=== PATIENT | male | born 1935 | race African-American/Black ===

== ENCOUNTER 2018-04-07 06:37 | Inpatient (IN) | payer MEDICARE ==
[2018-04-07] VITALS (25 sets, daily range): BP systolic 100–162; BP diastolic 33–99
[~2018-04-07] VITALS: Ht 185.4 cm; Wt 102.2 kg
[2018-04-07] MEDS ORDERED: ACET-2708 PO (08:21)
[2018-04-07] MEDS ORDERED: ASPI-1159 PO (08:21)
[2018-04-07] MEDS ORDERED: LOSA50TA20 PO (08:21)
[2018-04-07] MEDS ORDERED: LIP40 PO (08:21)
[2018-04-07] MEDS ORDERED: IODIXANOL 320MG/ML 100 ML BOTTLE IV ONE ×2 (08:34→09:21)
[2018-04-07] MEDS ORDERED: LIDOCAINE HCL 1% 20ML VIAL (Pyxis) INJ ONE ×2 (08:34→09:16)
[2018-04-07] MEDS ORDERED: MIDAZOLAM HCL 2 MG/2 ML VIAL ONE (08:41)
[2018-04-07] MEDS ORDERED: FENTANYL CITRATE/PF 50MCG/ML 2ML VIAL ONE (08:41)
[2018-04-07] MEDS ORDERED: IOHEXOL-300 100 ML BOTTLE ONE (09:27)
[2018-04-07] MEDS ORDERED: ASPIRIN 325MG TABLET ONE (09:55)
[2018-04-07] MEDS ORDERED: CLOPIDOGREL 75MG TABLET ONE ×2 (09:55→09:57)
[2018-04-07] MEDS ORDERED: ACETAMINOPHEN 325MG TABLET PO PRN ×2 (10:00→11:30)
[2018-04-07] MEDS ORDERED: ATROPINE SULFATE 1MG/10ML SYR IV PRN (10:00)
[2018-04-07] MEDS ORDERED: HYDROCODONE/ACETAMINOPHEN 5/325MG TABLET PO PRN (11:30)
[2018-04-07] MEDS ORDERED: SODIUM CHLORIDE 0.9% 1,000 ML IV SCH (11:30)
[2018-04-07] MEDS: LOSARTAN POTASSIUM 50 MG TABLET PO SCH (11:30)
[2018-04-07] MEDS: SODIUM CHLORIDE 0.45% 1,000 ML IV SCH (11:45)
[2018-04-07] MEDS ORDERED: HEPARIN SODIUM 1,000 UNIT/1ML VIAL IV ONE (13:30)
[2018-04-07] MEDS ORDERED: NICARDIPINE 100MCG/ML 10ML VIAL (CATH LAB) IV ONE (13:30)
[2018-04-07] MEDS ORDERED: NITROGLYCERIN 50MCG/ML 10ML VIAL (CATH LAB) IV ONE (13:30)
[2018-04-07] MEDS: ATENOLOL 50 MG TABLET PO SCH ×2 (14:15→20:05)
[2018-04-07] MEDS ORDERED: ATORVASTATIN CALCIUM 20MG TABLET PO SCH (21:00)
[2018-04-07] MEDS ORDERED: METOPROLOL TARTRATE 25MG TABLET PO SCH (21:00)
[2018-04-08] VITALS (10 sets, daily range): BP systolic 96–159; BP diastolic 28–94
[2018-04-08] MEDS: SODIUM CHLORIDE 0.45% 1,000 ML IV SCH (03:43)
[2018-04-08 05:51] LABS: CHLORIDE 103 mEq/L (98-107)
[2018-04-08 06:02] LABS: BASOPHILS % 0.4 % (0.0-2.0); EOSINOPHILS % 4.4 % (0.0-5.0); HEMATOCRIT. 38.1 % (42.0-52.0); HEMOGLOBIN. 12.8 g/dL (14.0-18.0); LDL CHOLESTEROL 96 mg/dL (5-100); LYMPHOCYTES % 11.5 % (20.0-50.0); MEAN CORPUSCULAR HEMOGLOBIN 28.8 pg (28.0-32.0); MEAN CORPUSCULAR VOLUME 85.5 fL (80.0-94.0); MEAN PLATELET VOLUME 7.9 fl (7.4-10.4); MONOCYTES % 8.5 % (2.0-8.0); NEUTROPHILS % 75.2 % (40.0-76.0); PLATELET 193 x1000/uL (130-400); RED BLOOD CELL COUNT 4.45 mill/uL (4.7-6.1); RED CELL DISTRIBUTION WIDTH 13.2 % (11.6-14.6)
[2018-04-08 06:05] LABS: HDL CHOLESTEROL 38 mg/dL (40-59)
[2018-04-08] MEDS: LOSARTAN POTASSIUM 50 MG TABLET PO SCH (08:23)
[2018-04-08] MEDS: ATENOLOL 50 MG TABLET PO SCH (08:23)
[2018-04-08] MEDS ORDERED: CLOPIDOGREL 75MG TABLET PO SCH (09:00)
[2018-04-08] MEDS ORDERED: ASPIRIN 81MG EC TABLET PO SCH (09:00)
[2018-05-19] MEDS ORDERED: CHOL200077 PO (08:12)
[2018-05-19] MEDS ORDERED: CLOP75TA16 PO (08:12)
== END 2018-04-08 11:32 | disposition home or self-care (01) | DRG 246 ==
LOC: CCL 06:37 → 3WST 06:38
PROVIDERS: ADMIT Specialist; ATTEND Specialist
PROC: 4A023N7 Measurement of Cardiac Sampling and Pressure, Left Heart, Percutaneous Approach (ICD-10-PCS; principal; 2018-04-07)
PROC: 027034Z Dilation of Coronary Artery, One Artery with Drug-eluting Intraluminal Device, Percutaneous Approach (ICD-10-PCS; 2018-04-07)
PROC: B2111ZZ Fluoroscopy of Multiple Coronary Arteries using Low Osmolar Contrast (ICD-10-PCS; 2018-04-07)
DX: I25.10 Atherosclerotic heart disease of native coronary artery without angina pectoris (principal); I50.43 Acute on chronic combined systolic (congestive) and diastolic (congestive) heart failure; E78.5 Hyperlipidemia, unspecified; I35.0 Nonrheumatic aortic (valve) stenosis; G47.30 Sleep apnea, unspecified; Z79.899 Other long term (current) drug therapy; Z85.46 Personal history of malignant neoplasm of prostate; Z95.5 Presence of coronary angioplasty implant and graft; I11.0 Hypertensive heart disease with heart failure
CPT/HCPCS: 36415; 80048; 80061; 83036; 85025; 85347; 92928; 93458; C1725; C1760; C1769; C1874; C1887; C1893; J1644; J2250; J3010; J3490; J7040; Q9967

== ENCOUNTER 2018-06-21 13:28 | Emergency (ER) | payer MEDICARE ==
[~2018-06-21] VITALS: Ht 185.4 cm; Wt 100.0 kg
[~2018-06-21 13:28] MED LIST: ACET-2708 PO; ASPI-1159 PO; CHOL200077 PO; CLOP75TA16 PO; LIP40 PO; LOSA50TA20 PO
[2018-06-21] MEDS ORDERED: TRAMADOL 50MG TABLET PO ONE (14:45)
[2018-06-21] MEDS ORDERED: IBUPROFEN 400MG TABLET PO ONE (14:45)
[2018-06-21 16:30] VITALS: BP 113/85
== END 2018-06-21 17:03 | disposition home or self-care (01) ==
LOC: ER 13:28
DX: M25.561 Pain in right knee (principal); I11.9 Hypertensive heart disease without heart failure; E78.00 Pure hypercholesterolemia, unspecified; I25.10 Atherosclerotic heart disease of native coronary artery without angina pectoris; E78.5 Hyperlipidemia, unspecified; Z96.643 Presence of artificial hip joint, bilateral; Z79.01 Long term (current) use of anticoagulants; Z79.82 Long term (current) use of aspirin; W01.0XXA Fall on same level from slipping, tripping and stumbling without subsequent striking against object, initial encounter; Y93.89 Activity, other specified; Y92.89 Other specified places as the place of occurrence of the external cause; Y99.8 Other external cause status
CPT/HCPCS: 73562; 93971; 99284

== ENCOUNTER 2019-04-11 11:18 | Inpatient (IN) | payer MEDICARE, OTHER ==
[~2019-04-11] VITALS: Ht 188 cm; Wt 101.2 kg
[~2019-04-11 11:18] MED LIST changes: -ASPI-1159 PO; +ASPI-1393 PO; -CLOP75TA16 PO; +CLOP75TA4 PO; -LOSA50TA20 PO; +LOSA50TA41 PO
[2019-04-11] MEDS ORDERED: SODIUM CHLORIDE 0.9% 1,000 ML IV ONE (11:58)
[2019-04-11] MEDS ORDERED: PANTOPRAZOLE SODIUM 40 MG/VIAL IV ONE (12:00)
[2019-04-11 12:23] LABS: HEMATOCRIT. 22.9 % (42.0-52.0); HEMOGLOBIN. 7.8 g/dL (14.0-18.0); MEAN CORPUSCULAR HEMOGLOBIN 29.2 pg (28.0-32.0); MEAN CORPUSCULAR VOLUME 85.4 fL (80.0-94.0); MEAN PLATELET VOLUME 7.6 fl (7.4-10.4); PLATELET 228 x1000/uL (130-400); RED BLOOD CELL COUNT 2.69 mill/uL (4.7-6.1); RED CELL DISTRIBUTION WIDTH 14.9 % (11.6-14.6)
[2019-04-11 12:26] LABS: CHLORIDE 107 mEq/L (98-107)
[2019-04-11 12:29] LABS: PARTIAL THROMBOPLASTIN TIME 21.3 sec (23.4-31.0); PROTHROMBIN TIME 10.3 sec (9.6-11.0)
[2019-04-11 13:29] LABS: PLATELET ESTIMATE NORMAL
[2019-04-11] MEDS ORDERED: ONDANSETRON HCL 4MG/2ML INJ IV PRN (16:30)
[2019-04-11] MEDS ORDERED: MORPHINE SULFATE 2 MG/ML CPJ (NOT FOR IM USE) IV PRN (16:30)
[2019-04-11 17:00] VITALS: BP 103/53
[2019-04-11 18:00] VITALS: BP 103/53
[2019-04-11 20:00] VITALS: BP 102/50
[2019-04-11] MEDS: DEXT 5%/0.45% NACL 1000ML 1,000 ML IV SCH (20:19)
[2019-04-11] MEDS: PANTOPRAZOLE SODIUM 40 MG/VIAL IV SCH (20:58)
[2019-04-12] VITALS (14 sets, daily range): BP systolic 79–121; BP diastolic 43–66
[2019-04-12 03:58] LABS: BASOPHILS % 0.3 % (0.0-2.0); EOSINOPHILS % 0.6 % (0.0-5.0); LYMPHOCYTES % 11.4 % (20.0-50.0); MEAN CORPUSCULAR HEMOGLOBIN 29.6 pg (28.0-32.0); MONOCYTES % 6.8 % (2.0-8.0); NEUTROPHILS % 80.9 % (40.0-76.0); PLATELET 186 x1000/uL (130-400); RED BLOOD CELL COUNT 2.29 mill/uL (4.7-6.1); RED CELL DISTRIBUTION WIDTH 14.7 % (11.6-14.6)
[2019-04-12 04:06] LABS: CHLORIDE 110 mEq/L (98-107)
[2019-04-12 04:12] LABS: HEMATOCRIT. 19.7 % (42.0-52.0); HEMOGLOBIN. 6.8 g/dL (14.0-18.0); TOTAL IRON BINDING CAPACITY 247 ug/dL (250-450)
[2019-04-12] MEDS ORDERED: PANTOPRAZOLE SODIUM 40 MG/VIAL IV SCH (09:00)
[2019-04-12] MEDS: PANTOPRAZOLE SODIUM 40 MG/VIAL IV SCH ×2 (09:57→20:01)
[2019-04-12] MEDS ORDERED: SORBITOL 70% SOLN 30ML PO NR ×2 (16:00→20:00)
[2019-04-12] MEDS ORDERED: ACETAMINOPHEN 325MG TABLET PO SCH (17:45)
[2019-04-12] MEDS: DEXT 5%/0.45% NACL 1000ML 1,000 ML IV SCH (18:57)
[2019-04-13] VITALS (16 sets, daily range): BP systolic 95–134; BP diastolic 47–84
[2019-04-13] MEDS: PANTOPRAZOLE SODIUM 40 MG/VIAL IV SCH ×2 (10:46→21:00)
[2019-04-13 10:53] LABS: BASOPHILS % 0.3 % (0.0-2.0); EOSINOPHILS % 1.8 % (0.0-5.0); HEMOGLOBIN. 7.3 g/dL (14.0-18.0); LYMPHOCYTES % 9.1 % (20.0-50.0); MEAN CORPUSCULAR HEMOGLOBIN 30.3 pg (28.0-32.0); MEAN CORPUSCULAR VOLUME 85.4 fL (80.0-94.0); MONOCYTES % 6.8 % (2.0-8.0); PLATELET 162 x1000/uL (130-400); RED BLOOD CELL COUNT 2.41 mill/uL (4.7-6.1); RED CELL DISTRIBUTION WIDTH 14.4 % (11.6-14.6)
[2019-04-13 11:02] LABS: CHLORIDE 109 mEq/L (98-107); PROTHROMBIN TIME 10.1 sec (9.6-11.0)
[2019-04-13 11:04] LABS: HEMATOCRIT. 20.6 % (42.0-52.0)
[2019-04-13] MEDS ORDERED: KCL 20MEQ/100ML PREMIX 100 ML IV NR (14:00)
[2019-04-13 19:52] LABS: HEMATOCRIT 23.9 % (42.0-52.0); HEMOGLOBIN 8.1 g/dL (14.0-18.0); MEAN CORPUSCULAR HEMOGLOBIN 29.2 pg (28.0-32.0); MEAN CORPUSCULAR VOLUME 86.3 fL (80.0-94.0); PLATELET 168 x1000/uL (130-400); RED BLOOD CELL COUNT 2.77 mill/uL (4.7-6.1); RED CELL DISTRIBUTION WIDTH 14.4 % (11.6-14.6)
[2019-04-14] VITALS (7 sets, daily range): BP systolic 95–135; BP diastolic 47–78
[2019-04-14] MEDS: DEXT 5%/0.45% NACL 1000ML 1,000 ML IV SCH ×2 (02:26→18:21)
[2019-04-14] MEDS: ACETAMINOPHEN 325MG TABLET PO PRN ×2 (06:13→20:24)
[2019-04-14] MEDS: PANTOPRAZOLE SODIUM 40 MG/VIAL IV SCH ×2 (11:03→20:08)
[2019-04-14 13:04] LABS: BASOPHILS % 0.3 % (0.0-2.0); EOSINOPHILS % 3.2 % (0.0-5.0); HEMATOCRIT. 23.7 % (42.0-52.0); HEMOGLOBIN. 8.5 g/dL (14.0-18.0); LYMPHOCYTES % 9.5 % (20.0-50.0); MEAN CORPUSCULAR HEMOGLOBIN 30.8 pg (28.0-32.0); MEAN CORPUSCULAR VOLUME 85.7 fL (80.0-94.0); MEAN PLATELET VOLUME 7.6 fl (7.4-10.4); PLATELET 183 x1000/uL (130-400); RED BLOOD CELL COUNT 2.77 mill/uL (4.7-6.1); RED CELL DISTRIBUTION WIDTH 14.7 % (11.6-14.6)
[2019-04-14 13:21] LABS: CHLORIDE 109 mEq/L (98-107)
[2019-04-15] VITALS: BP 118/56
[2019-04-15 04:00] VITALS: BP 134/64
[2019-04-15 06:52] LABS: BASOPHILS % 0.3 % (0.0-2.0); EOSINOPHILS % 4.2 % (0.0-5.0); HEMATOCRIT. 22.6 % (42.0-52.0); HEMOGLOBIN. 7.9 g/dL (14.0-18.0); LYMPHOCYTES % 11.3 % (20.0-50.0); MEAN CORPUSCULAR HEMOGLOBIN 29.9 pg (28.0-32.0); MEAN CORPUSCULAR VOLUME 86.1 fL (80.0-94.0); MEAN PLATELET VOLUME 7.2 fl (7.4-10.4); MONOCYTES % 6.8 % (2.0-8.0); NEUTROPHILS % 77.4 % (40.0-76.0); PLATELET 190 x1000/uL (130-400); RED BLOOD CELL COUNT 2.63 mill/uL (4.7-6.1); RED CELL DISTRIBUTION WIDTH 14.6 % (11.6-14.6)
[2019-04-15 07:01] LABS: CHLORIDE 111 mEq/L (98-107)
[2019-04-15 08:00] VITALS: BP 118/67
[2019-04-15 12:00] VITALS: BP 143/69
[2019-04-15] MEDS: PANTOPRAZOLE SODIUM 40 MG/VIAL IV SCH ×2 (12:01→20:59)
[2019-04-15] MEDS: ASPIRIN 81MG TABLET PO SCH (12:59)
[2019-04-15 14:35] LABS: VITAMIN B12 SERUM 756 pg/mL (211-911)
[2019-04-15 16:00] VITALS: BP 147/81
[2019-04-15] MEDS: DEXT 5%/0.45% NACL 1000ML 1,000 ML IV SCH (16:21)
[2019-04-15 20:00] VITALS: BP 124/84
[2019-04-15] MEDS: ACETAMINOPHEN 325MG TABLET PO PRN (21:19)
[2019-04-16] VITALS: BP 123/69
[2019-04-16 04:00] VITALS: BP 118/54
[2019-04-16 07:07] LABS: CHLORIDE 109 mEq/L (98-107)
[2019-04-16 07:18] LABS: BASOPHILS % 0.4 % (0.0-2.0); EOSINOPHILS % 3.8 % (0.0-5.0); HEMATOCRIT. 23.8 % (42.0-52.0); HEMOGLOBIN. 8.1 g/dL (14.0-18.0); LYMPHOCYTES % 9.6 % (20.0-50.0); MEAN CORPUSCULAR HEMOGLOBIN 29.7 pg (28.0-32.0); MEAN CORPUSCULAR VOLUME 86.8 fL (80.0-94.0); MEAN PLATELET VOLUME 6.9 fl (7.4-10.4); MONOCYTES % 6.6 % (2.0-8.0); NEUTROPHILS % 79.6 % (40.0-76.0); PLATELET 219 x1000/uL (130-400); RED BLOOD CELL COUNT 2.74 mill/uL (4.7-6.1); RED CELL DISTRIBUTION WIDTH 14.8 % (11.6-14.6)
[2019-04-16 08:00] VITALS: BP 136/68
[2019-04-16] MEDS: ASPIRIN 81MG TABLET PO SCH (08:15)
[2019-04-16] MEDS: PANTOPRAZOLE SODIUM 40 MG/VIAL IV SCH (08:15)
[2019-04-16 12:00] VITALS: BP 134/74
[2019-04-16 13:26] VITALS: BP 135/74
== END 2019-04-16 15:55 | disposition home health service (06) | DRG 378 ==
LOC: ER 11:18 → 5WST 14:11 → EDBEDREQTM 14:14 → EDBEDREQ 14:14 → ENRESERV 14:53
PROVIDERS: ADMIT Family Medicine Adult Medicine; ATTEND Family Medicine Adult Medicine
PROC: 30233N1 Transfusion of Nonautologous Red Blood Cells into Peripheral Vein, Percutaneous Approach (ICD-10-PCS; principal; 2019-04-12)
DX: K57.31 Diverticulosis of large intestine without perforation or abscess with bleeding (principal); D62 Acute posthemorrhagic anemia; E78.5 Hyperlipidemia, unspecified; I11.9 Hypertensive heart disease without heart failure; I25.10 Atherosclerotic heart disease of native coronary artery without angina pectoris; J44.9 Chronic obstructive pulmonary disease, unspecified; E78.00 Pure hypercholesterolemia, unspecified; Z96.643 Presence of artificial hip joint, bilateral; K59.00 Constipation, unspecified; M19.90 Unspecified osteoarthritis, unspecified site; K57.90 Diverticulosis of intestine, part unspecified, without perforation or abscess without bleeding; I73.9 Peripheral vascular disease, unspecified; K29.71 Gastritis, unspecified, with bleeding; E87.6 Hypokalemia; I35.0 Nonrheumatic aortic (valve) stenosis; E87.8 Other disorders of electrolyte and fluid balance, not elsewhere classified; I25.2 Old myocardial infarction; Z85.038 Personal history of other malignant neoplasm of large intestine; Z85.46 Personal history of malignant neoplasm of prostate; Z95.5 Presence of coronary angioplasty implant and graft; Z79.02 Long term (current) use of antithrombotics/antiplatelets; Z79.82 Long term (current) use of aspirin
CPT/HCPCS: 36415; 71045; 78278; 80048; 82270; 82607; 82962; 83540; 83550; 83735; 84100; 84484; 85018; 85027; 85044; 86850; 86870; 86900; 86920; 93005; 93306; 93308; 93970; 96361; 96374; 99285; A9560; C9113; J3480; J7030; P9016; P9021

== ENCOUNTER 2019-05-04 22:00 | Inpatient (IN) | payer MEDICARE, OTHER ==
[~2019-05-04] VITALS: Ht 188 cm; Wt 105.7 kg
[~2019-05-04 22:00] MED LIST changes: -CLOP75TA4 PO
[2019-05-04 22:15] VITALS: BP 123/71
[2019-05-04 23:00] VITALS: BP 123/71
[2019-05-04] MEDS ORDERED: ONDANSETRON HCL 4MG/2ML INJ IV PRN (23:45)
[2019-05-04] MEDS ORDERED: SENNOSIDES 8.6MG TABLET PO PRN (23:45)
[2019-05-05 00:39] LABS: CLARITY URINE CLEAR (CLEAR); COLOR URINE YELLOW (YELLOW); KETONES URINE NEGATIVE (NEGATIVE); LEUKOCYTE ESTERASE URINE NEGATIVE (NEGATIVE); NITRITE URINE NEGATIVE (NEGATIVE); OCCULT BLOOD URINE NEGATIVE (NEGATIVE); PH URINE 5.5 (4.5-8.0); PROTEIN URINE 1+ (NEGATIVE)
[2019-05-05] MEDS ORDERED: LEVOFLOXACIN 500MG PREMIX 100 ML IV SCH ×3 (01:00→02:00)
[2019-05-05 09:00] VITALS: BP 134/83
[2019-05-05] MEDS: DOCUSATE SODIUM 100MG CAPSULE PO SCH ×2 (09:00→16:20)
[2019-05-05] MEDS ORDERED: LEVETIRACETAM 500 MG in SODIUM CHLORIDE 0.9% 100 ML IV SCH (09:00)
[2019-05-05] MEDS: PANTOPRAZOLE 40MG DR TABLET PO SCH ×2 (09:00→16:20)
[2019-05-05] MEDS: METOPROLOL TARTRATE 25MG TABLET PO SCH ×2 (09:06→20:47)
[2019-05-05] MEDS: ACETAMINOPHEN 325MG TABLET PO PRN (09:06)
[2019-05-05 13:26] LABS: HEMATOCRIT. 28.7 % (42.0-52.0); HEMOGLOBIN. 9.2 g/dL (14.0-18.0); MEAN CORPUSCULAR HEMOGLOBIN 28.6 pg (28.0-32.0); MEAN CORPUSCULAR VOLUME 88.7 fL (80.0-94.0); MEAN PLATELET VOLUME 7.5 fl (7.4-10.4); PLATELET 360 x1000/uL (130-400); RED BLOOD CELL COUNT 3.24 mill/uL (4.7-6.1); RED CELL DISTRIBUTION WIDTH 17.3 % (11.6-14.6)
[2019-05-05 13:30] LABS: CHLORIDE 100 mEq/L (98-107)
[2019-05-05] MEDS: LACTULOSE 20G/30ML UDC PO SCH ×2 (13:52→21:00)
[2019-05-05 13:58] LABS: PLATELET ESTIMATE NORMAL
[2019-05-05 14:54] LABS: PHOSPHORUS 2.2 mg/dL (2.5-4.9)
[2019-05-05 15:58] LABS: FOLIC ACID (FOLATE) SERUM 5.1 ng/mL (>5.38)
[2019-05-05] MEDS: BISACODYL 5MG TABLET PO PRN (16:21)
[2019-05-05 19:02] LABS: BG BASE EXCESS 9.8 mmol/L (-2.0-2.0); BG CARBOXYHEMOGLOBIN 1.3 % (0.5-1.5); BG DEOXYHEMOGLOBIN 8.1 % (0.0-5.0); BG FRACTION INSPIRED OXYGEN 24; BG HCO3 ACT 36.2 mmol/L (22.0-26.0); BG METHEMOGLOBIN 0.2 % (0.0-1.5); BG OXYGEN SATURATION 91.8 % (92.0-98.5); BG OXYHEMOGLOBIN 90.4 % (94.0-97.0); BG PCO2 59.8 mmHg (35.0-45.0); BG PO2 64.1 mmHg (75.0-100.0); BG SAMPLE SITE RIGHT RADIAL; BG TOTAL HEMOGLOBIN 10.2 g/dL (12.0-18.0); BG VENT MODE NASAL CANNULA
[2019-05-05 20:00] VITALS: BP 105/60
[2019-05-05] MEDS: ATORVASTATIN CALCIUM 20MG TABLET PO SCH (20:47)
[2019-05-05] MEDS: LEVOFLOXACIN 500MG TABLET PO SCH (20:47)
[2019-05-05] MEDS: SENNOSIDES 8.6MG TABLET PO SCH (20:47)
[2019-05-05] MEDS: POLYETHYLENE GLYCOL 3350 (17GM) 1 DOSE PACK PO SCH (20:48)
[2019-05-05] MEDS: LINEZOLID 600MG TABLET PO SCH (20:54)
[2019-05-06] MEDS: LACTULOSE 20G/30ML UDC PO SCH (06:24)
[2019-05-06] MEDS: BISACODYL 5MG TABLET PO PRN (06:24)
[2019-05-06 08:00] VITALS: BP 120/69
[2019-05-06 08:03] LABS: CHLORIDE 101 mEq/L (98-107)
[2019-05-06] MEDS ORDERED: NA PHOS,M-B/NA PHOS,DI-BA ENEMA 118ML PR NR (08:30)
[2019-05-06] MEDS ORDERED: BISACODYL 10MG SUPP PR PRN (09:00)
[2019-05-06] MEDS ORDERED: LACTULOSE 20G/30ML UDC PO SCH (09:00)
[2019-05-06] MEDS ORDERED: DOCUSATE SODIUM 100MG CAPSULE PO SCH (09:00)
[2019-05-06] MEDS: METOPROLOL TARTRATE 25MG TABLET PO SCH ×2 (09:09→20:40)
[2019-05-06] MEDS: FOLIC ACID 1MG TABLET PO SCH (09:09)
[2019-05-06] MEDS: PANTOPRAZOLE 40MG DR TABLET PO SCH ×2 (09:10→16:39)
[2019-05-06] MEDS: DOCUSATE SODIUM 100MG CAPSULE PO SCH ×2 (09:10→16:39)
[2019-05-06] MEDS: LINEZOLID 600MG TABLET PO SCH ×2 (09:11→20:40)
[2019-05-06 11:43] LABS: HEMATOCRIT. 26.9 % (42.0-52.0); HEMOGLOBIN. 8.8 g/dL (14.0-18.0); MEAN CORPUSCULAR HEMOGLOBIN 28.9 pg (28.0-32.0); MEAN CORPUSCULAR VOLUME 88.9 fL (80.0-94.0); MEAN PLATELET VOLUME 7.6 fl (7.4-10.4); PLATELET 337 x1000/uL (130-400); RED BLOOD CELL COUNT 3.03 mill/uL (4.7-6.1); RED CELL DISTRIBUTION WIDTH 17.6 % (11.6-14.6)
[2019-05-06 14:35] LABS: PLATELET ESTIMATE NORMAL
[2019-05-06 20:00] VITALS: BP 118/67
[2019-05-06] MEDS: SENNOSIDES 8.6MG TABLET PO SCH (20:39)
[2019-05-06] MEDS: POLYETHYLENE GLYCOL 3350 (17GM) 1 DOSE PACK PO SCH (20:39)
[2019-05-06] MEDS: LEVOFLOXACIN 500MG TABLET PO SCH (20:39)
[2019-05-06] MEDS: ATORVASTATIN CALCIUM 20MG TABLET PO SCH (20:40)
[2019-05-06] MEDS: IRON SUCROSE COMPLEX 100 MG in SODIUM CHLORIDE 0.9% 100 ML IV SCH (21:15)
[2019-05-07 05:05] VITALS: BP 118/61
[2019-05-07 07:38] LABS: CHLORIDE 99 mEq/L (98-107)
[2019-05-07 07:59] VITALS: BP 120/90
[2019-05-07 08:22] LABS: HEMATOCRIT. 27.2 % (42.0-52.0); HEMOGLOBIN. 9.1 g/dL (14.0-18.0); MEAN CORPUSCULAR HEMOGLOBIN 29.4 pg (28.0-32.0); MEAN CORPUSCULAR VOLUME 87.8 fL (80.0-94.0); MEAN PLATELET VOLUME 7.7 fl (7.4-10.4); PLATELET 341 x1000/uL (130-400); RED CELL DISTRIBUTION WIDTH 17.2 % (11.6-14.6)
[2019-05-07] MEDS: FOLIC ACID 1MG TABLET PO SCH (08:39)
[2019-05-07] MEDS: METOPROLOL TARTRATE 25MG TABLET PO SCH ×2 (08:39→20:21)
[2019-05-07] MEDS: PANTOPRAZOLE 40MG DR TABLET PO SCH ×2 (08:39→17:08)
[2019-05-07] MEDS: DOCUSATE SODIUM 100MG CAPSULE PO SCH ×2 (08:39→17:08)
[2019-05-07] MEDS: LINEZOLID 600MG TABLET PO SCH ×2 (08:40→20:24)
[2019-05-07] MEDS ORDERED: NA PHOS,M-B/NA PHOS,DI-BA ENEMA 118ML PR PRN (09:00)
[2019-05-07 13:29] LABS: PLATELET ESTIMATE NORMAL
[2019-05-07 20:00] VITALS: BP 111/61
[2019-05-07] MEDS: IRON SUCROSE COMPLEX 100 MG in SODIUM CHLORIDE 0.9% 100 ML IV SCH (20:20)
[2019-05-07] MEDS: ATORVASTATIN CALCIUM 20MG TABLET PO SCH (20:21)
[2019-05-07] MEDS: POLYETHYLENE GLYCOL 3350 (17GM) 1 DOSE PACK PO SCH (20:22)
[2019-05-07] MEDS: SENNOSIDES 8.6MG TABLET PO SCH (20:22)
[2019-05-07] MEDS: LEVOFLOXACIN 500MG TABLET PO SCH (20:22)
[2019-05-08 07:43] VITALS: BP 119/75
[2019-05-08] MEDS: METOPROLOL TARTRATE 25MG TABLET PO SCH ×2 (08:22→20:30)
[2019-05-08] MEDS: FOLIC ACID 1MG TABLET PO SCH (08:22)
[2019-05-08] MEDS: PANTOPRAZOLE 40MG DR TABLET PO SCH ×2 (08:22→16:10)
[2019-05-08] MEDS: DOCUSATE SODIUM 100MG CAPSULE PO SCH ×2 (08:22→16:12)
[2019-05-08 20:00] VITALS: BP 120/96
[2019-05-08] MEDS: IRON SUCROSE COMPLEX 100 MG in SODIUM CHLORIDE 0.9% 100 ML IV SCH (20:27)
[2019-05-08] MEDS: POLYETHYLENE GLYCOL 3350 (17GM) 1 DOSE PACK PO SCH (20:29)
[2019-05-08] MEDS: SENNOSIDES 8.6MG TABLET PO SCH (20:30)
[2019-05-08] MEDS: ATORVASTATIN CALCIUM 20MG TABLET PO SCH (20:30)
[2019-05-09 06:58] LABS: BASOPHILS % 0.4 % (0.0-2.0); EOSINOPHILS % 2.7 % (0.0-5.0); HEMOGLOBIN. 9.1 g/dL (14.0-18.0); LYMPHOCYTES % 8.2 % (20.0-50.0); MEAN CORPUSCULAR HEMOGLOBIN 28.1 pg (28.0-32.0); MEAN CORPUSCULAR VOLUME 86.8 fL (80.0-94.0); MEAN PLATELET VOLUME 7.1 fl (7.4-10.4); MONOCYTES % 8.7 % (2.0-8.0); PLATELET 364 x1000/uL (130-400); RED BLOOD CELL COUNT 3.22 mill/uL (4.7-6.1); RED CELL DISTRIBUTION WIDTH 17.7 % (11.6-14.6)
[2019-05-09 07:16] LABS: CHLORIDE 101 mEq/L (98-107)
[2019-05-09 08:00] VITALS: BP 112/70
[2019-05-09] MEDS: FOLIC ACID 1MG TABLET PO SCH (09:32)
[2019-05-09] MEDS: PANTOPRAZOLE 40MG DR TABLET PO SCH ×2 (09:32→16:59)
[2019-05-09] MEDS: DOCUSATE SODIUM 100MG CAPSULE PO SCH ×2 (09:32→16:59)
[2019-05-09] MEDS: METOPROLOL TARTRATE 25MG TABLET PO SCH ×2 (09:32→21:00)
[2019-05-09] MEDS: BISACODYL 5MG TABLET PO PRN (16:59)
[2019-05-09 20:00] VITALS: BP 100/57
[2019-05-09] MEDS: POLYETHYLENE GLYCOL 3350 (17GM) 1 DOSE PACK PO SCH (21:00)
[2019-05-09] MEDS: IRON SUCROSE COMPLEX 100 MG in SODIUM CHLORIDE 0.9% 100 ML IV SCH (21:14)
[2019-05-09] MEDS: ATORVASTATIN CALCIUM 20MG TABLET PO SCH (21:16)
[2019-05-09] MEDS: SENNOSIDES 8.6MG TABLET PO SCH (21:16)
[2019-05-10 08:00] VITALS: BP 125/62
[2019-05-10] MEDS: FOLIC ACID 1MG TABLET PO SCH (08:43)
[2019-05-10] MEDS: METOPROLOL TARTRATE 25MG TABLET PO SCH ×2 (08:43→21:00)
[2019-05-10] MEDS: DOCUSATE SODIUM 100MG CAPSULE PO SCH ×2 (08:44→17:04)
[2019-05-10] MEDS: PANTOPRAZOLE 40MG DR TABLET PO SCH ×2 (08:44→17:04)
[2019-05-10 20:04] VITALS: BP 108/70
[2019-05-10] MEDS: POLYETHYLENE GLYCOL 3350 (17GM) 1 DOSE PACK PO SCH (21:00)
[2019-05-10] MEDS: SENNOSIDES 8.6MG TABLET PO SCH (21:41)
[2019-05-10] MEDS: ATORVASTATIN CALCIUM 20MG TABLET PO SCH (21:41)
[2019-05-10] MEDS: IRON SUCROSE COMPLEX 100 MG in SODIUM CHLORIDE 0.9% 100 ML IV SCH (22:05)
[2019-05-11 07:34] VITALS: BP 138/81
[2019-05-11] MEDS: METOPROLOL TARTRATE 25MG TABLET PO SCH ×2 (08:26→20:21)
[2019-05-11] MEDS: PANTOPRAZOLE 40MG DR TABLET PO SCH ×2 (08:26→16:18)
[2019-05-11] MEDS: DOCUSATE SODIUM 100MG CAPSULE PO SCH ×2 (08:26→16:18)
[2019-05-11] MEDS: FOLIC ACID 1MG TABLET PO SCH (08:26)
[2019-05-11 20:00] VITALS: BP 127/64
[2019-05-11] MEDS: ATORVASTATIN CALCIUM 20MG TABLET PO SCH (20:20)
[2019-05-11] MEDS: POLYETHYLENE GLYCOL 3350 (17GM) 1 DOSE PACK PO SCH (20:20)
[2019-05-11] MEDS: SENNOSIDES 8.6MG TABLET PO SCH (20:20)
[2019-05-12 07:06] LABS: BASOPHILS % 0.3 % (0.0-2.0); EOSINOPHILS % 2.6 % (0.0-5.0); HEMATOCRIT. 27.8 % (42.0-52.0); LYMPHOCYTES % 8.2 % (20.0-50.0); MEAN CORPUSCULAR HEMOGLOBIN 28.6 pg (28.0-32.0); MEAN CORPUSCULAR VOLUME 87.7 fL (80.0-94.0); MEAN PLATELET VOLUME 6.9 fl (7.4-10.4); MONOCYTES % 7.3 % (2.0-8.0); NEUTROPHILS % 81.6 % (40.0-76.0); PLATELET 344 x1000/uL (130-400); RED BLOOD CELL COUNT 3.17 mill/uL (4.7-6.1); RED CELL DISTRIBUTION WIDTH 18.4 % (11.6-14.6)
[2019-05-12 07:25] LABS: CHLORIDE 102 mEq/L (98-107)
[2019-05-12 07:44] VITALS: BP 159/85
[2019-05-12] MEDS: METOPROLOL TARTRATE 25MG TABLET PO SCH ×2 (08:07→20:14)
[2019-05-12] MEDS: DOCUSATE SODIUM 100MG CAPSULE PO SCH ×2 (08:08→16:19)
[2019-05-12] MEDS: FOLIC ACID 1MG TABLET PO SCH (08:08)
[2019-05-12] MEDS: PANTOPRAZOLE 40MG DR TABLET PO SCH ×2 (08:08→16:19)
[2019-05-12 16:37] LABS: BG BASE EXCESS 6.5 mmol/L (-2.0-2.0); BG CARBOXYHEMOGLOBIN 0.5 % (0.5-1.5); BG DEOXYHEMOGLOBIN 12.5 % (0.0-5.0); BG FRACTION INSPIRED OXYGEN 21; BG HCO3 ACT 30.7 mmol/L (22.0-26.0); BG METHEMOGLOBIN 0.3 % (0.0-1.5); BG OXYGEN SATURATION 87.4 % (92.0-98.5); BG OXYHEMOGLOBIN 86.7 % (94.0-97.0); BG PCO2 42.7 mmHg (35.0-45.0); BG PH 7.475 (7.350-7.450); BG PO2 51.6 mmHg (75.0-100.0); BG SAMPLE SITE RIGHT RADIAL; BG TOTAL HEMOGLOBIN 10.3 g/dL (12.0-18.0); BG VENT MODE ROOM AIR
[2019-05-12 20:00] VITALS: BP 131/65
[2019-05-12] MEDS: ATORVASTATIN CALCIUM 20MG TABLET PO SCH (20:14)
[2019-05-12] MEDS: SENNOSIDES 8.6MG TABLET PO SCH (20:14)
[2019-05-12] MEDS: POLYETHYLENE GLYCOL 3350 (17GM) 1 DOSE PACK PO SCH (20:14)
[2019-05-13 08:00] VITALS: BP 128/74
[2019-05-13] MEDS: FOLIC ACID 1MG TABLET PO SCH (08:14)
[2019-05-13] MEDS: METOPROLOL TARTRATE 25MG TABLET PO SCH ×2 (08:15→20:31)
[2019-05-13] MEDS: PANTOPRAZOLE 40MG DR TABLET PO SCH ×2 (08:15→16:29)
[2019-05-13] MEDS: DOCUSATE SODIUM 100MG CAPSULE PO SCH ×2 (08:15→16:29)
[2019-05-13 19:14] LABS: 25-HYDROXY VITAMIN D3 17 ng/mL (.)
[2019-05-13 20:00] VITALS: BP 123/64
[2019-05-13] MEDS: ATORVASTATIN CALCIUM 20MG TABLET PO SCH (20:31)
[2019-05-13] MEDS: SENNOSIDES 8.6MG TABLET PO SCH (20:31)
[2019-05-13] MEDS: POLYETHYLENE GLYCOL 3350 (17GM) 1 DOSE PACK PO SCH (20:32)
[2019-05-14 07:00] VITALS: BP 106/49
[2019-05-14 07:04] LABS: BASOPHILS % 0.5 % (0.0-2.0); EOSINOPHILS % 3.3 % (0.0-5.0); HEMATOCRIT. 29.1 % (42.0-52.0); HEMOGLOBIN. 9.5 g/dL (14.0-18.0); LYMPHOCYTES % 9.1 % (20.0-50.0); MEAN CORPUSCULAR HEMOGLOBIN 28.6 pg (28.0-32.0); MEAN CORPUSCULAR VOLUME 87.4 fL (80.0-94.0); MEAN PLATELET VOLUME 6.7 fl (7.4-10.4); MONOCYTES % 6.2 % (2.0-8.0); NEUTROPHILS % 80.9 % (40.0-76.0); PLATELET 354 x1000/uL (130-400); RED BLOOD CELL COUNT 3.33 mill/uL (4.7-6.1); RED CELL DISTRIBUTION WIDTH 18.4 % (11.6-14.6)
[2019-05-14 07:15] LABS: CHLORIDE 104 mEq/L (98-107)
[2019-05-14] MEDS: METOPROLOL TARTRATE 25MG TABLET PO SCH ×2 (08:43→21:00)
[2019-05-14] MEDS: PANTOPRAZOLE 40MG DR TABLET PO SCH ×2 (08:44→16:34)
[2019-05-14] MEDS: FOLIC ACID 1MG TABLET PO SCH (08:44)
[2019-05-14] MEDS: DOCUSATE SODIUM 100MG CAPSULE PO SCH ×2 (08:44→16:34)
[2019-05-14] MEDS ORDERED: ERGOCALCIFEROL 50000UNITS CAPSULE PO SCH (10:30)
[2019-05-14 20:00] VITALS: BP 114/61
[2019-05-14] MEDS: ATORVASTATIN CALCIUM 20MG TABLET PO SCH (20:51)
[2019-05-14] MEDS: SENNOSIDES 8.6MG TABLET PO SCH (20:51)
[2019-05-14] MEDS: POLYETHYLENE GLYCOL 3350 (17GM) 1 DOSE PACK PO SCH (20:52)
[2019-05-15 08:00] VITALS: BP 108/56
[2019-05-15] MEDS: DOCUSATE SODIUM 100MG CAPSULE PO SCH ×2 (08:31→16:08)
[2019-05-15] MEDS: METOPROLOL TARTRATE 25MG TABLET PO SCH ×2 (08:31→20:49)
[2019-05-15] MEDS: PANTOPRAZOLE 40MG DR TABLET PO SCH ×2 (08:31→16:08)
[2019-05-15] MEDS: FOLIC ACID 1MG TABLET PO SCH (08:31)
[2019-05-15 20:00] VITALS: BP 135/78
[2019-05-15] MEDS: POLYETHYLENE GLYCOL 3350 (17GM) 1 DOSE PACK PO SCH (20:49)
[2019-05-15] MEDS: SENNOSIDES 8.6MG TABLET PO SCH (20:49)
[2019-05-15] MEDS: ATORVASTATIN CALCIUM 20MG TABLET PO SCH (20:49)
[2019-05-16 07:04] LABS: CHLORIDE 106 mEq/L (98-107)
[2019-05-16 07:12] LABS: BASOPHILS % 0.8 % (0.0-2.0); EOSINOPHILS % 3.7 % (0.0-5.0); HEMATOCRIT. 29.7 % (42.0-52.0); HEMOGLOBIN. 9.6 g/dL (14.0-18.0); LYMPHOCYTES % 9.1 % (20.0-50.0); MEAN CORPUSCULAR HEMOGLOBIN 28.3 pg (28.0-32.0); MEAN CORPUSCULAR VOLUME 87.8 fL (80.0-94.0); MEAN PLATELET VOLUME 6.8 fl (7.4-10.4); MONOCYTES % 7.4 % (2.0-8.0); PLATELET 381 x1000/uL (130-400); RED BLOOD CELL COUNT 3.38 mill/uL (4.7-6.1); RED CELL DISTRIBUTION WIDTH 18.5 % (11.6-14.6)
[2019-05-16 08:07] VITALS: BP 101/63
[2019-05-16] MEDS: DOCUSATE SODIUM 100MG CAPSULE PO SCH ×2 (08:17→16:37)
[2019-05-16] MEDS: FOLIC ACID 1MG TABLET PO SCH (08:17)
[2019-05-16] MEDS: PANTOPRAZOLE 40MG DR TABLET PO SCH ×2 (08:17→16:37)
[2019-05-16] MEDS: METOPROLOL TARTRATE 25MG TABLET PO SCH ×2 (08:18→21:00)
[2019-05-16 20:00] VITALS: BP 102/64
[2019-05-16] MEDS: ATORVASTATIN CALCIUM 20MG TABLET PO SCH (21:51)
[2019-05-16] MEDS: SENNOSIDES 8.6MG TABLET PO SCH (21:51)
[2019-05-16] MEDS: POLYETHYLENE GLYCOL 3350 (17GM) 1 DOSE PACK PO SCH (21:52)
[2019-05-17 08:00] VITALS: BP 124/65
[2019-05-17] MEDS: PANTOPRAZOLE 40MG DR TABLET PO SCH ×2 (09:38→16:43)
[2019-05-17] MEDS: METOPROLOL TARTRATE 25MG TABLET PO SCH ×2 (09:38→20:42)
[2019-05-17] MEDS: DOCUSATE SODIUM 100MG CAPSULE PO SCH ×2 (09:38→16:43)
[2019-05-17] MEDS: FOLIC ACID 1MG TABLET PO SCH (09:38)
[2019-05-17 10:00] LABS: BASOPHILS % 0.5 % (0.0-2.0); EOSINOPHILS % 3.7 % (0.0-5.0); HEMATOCRIT. 32.6 % (42.0-52.0); HEMOGLOBIN. 10.4 g/dL (14.0-18.0); LYMPHOCYTES % 10.1 % (20.0-50.0); MEAN CORPUSCULAR HEMOGLOBIN 28.3 pg (28.0-32.0); MEAN CORPUSCULAR VOLUME 88.6 fL (80.0-94.0); MONOCYTES % 7.2 % (2.0-8.0); NEUTROPHILS % 78.5 % (40.0-76.0); PLATELET 401 x1000/uL (130-400); RED BLOOD CELL COUNT 3.69 mill/uL (4.7-6.1); RED CELL DISTRIBUTION WIDTH 18.6 % (11.6-14.6)
[2019-05-17 10:01] LABS: CHLORIDE 107 mEq/L (98-107)
[2019-05-17 20:00] VITALS: BP 102/65
[2019-05-17] MEDS: ATORVASTATIN CALCIUM 20MG TABLET PO SCH (20:36)
[2019-05-17] MEDS: POLYETHYLENE GLYCOL 3350 (17GM) 1 DOSE PACK PO SCH (20:36)
[2019-05-17] MEDS: SENNOSIDES 8.6MG TABLET PO SCH (20:36)
[2019-05-18 08:00] VITALS: BP 96/55
[2019-05-18] MEDS: METOPROLOL TARTRATE 25MG TABLET PO SCH ×2 (09:00→21:14)
[2019-05-18] MEDS: BISACODYL 5MG TABLET PO PRN (10:12)
[2019-05-18] MEDS: PANTOPRAZOLE 40MG DR TABLET PO SCH ×2 (10:12→17:15)
[2019-05-18] MEDS: FOLIC ACID 1MG TABLET PO SCH (10:12)
[2019-05-18] MEDS: DOCUSATE SODIUM 100MG CAPSULE PO SCH ×2 (10:12→17:15)
[2019-05-18 20:00] VITALS: BP 116/92
[2019-05-18] MEDS: ATORVASTATIN CALCIUM 20MG TABLET PO SCH (21:14)
[2019-05-18] MEDS: SENNOSIDES 8.6MG TABLET PO SCH (21:14)
[2019-05-18] MEDS: POLYETHYLENE GLYCOL 3350 (17GM) 1 DOSE PACK PO SCH (21:14)
[2019-05-19 07:47] VITALS: BP 124/78
[2019-05-19] MEDS: DOCUSATE SODIUM 100MG CAPSULE PO SCH (08:10)
[2019-05-19] MEDS: PANTOPRAZOLE 40MG DR TABLET PO SCH (08:11)
[2019-05-19] MEDS: FOLIC ACID 1MG TABLET PO SCH (08:11)
[2019-05-19] MEDS: METOPROLOL TARTRATE 25MG TABLET PO SCH (08:11)
[2019-05-19] MEDS: ACETAMINOPHEN 325MG TABLET PO PRN (08:11)
[2019-05-19 10:10] VITALS: BP 124/78
[2019-05-19 12:33] LABS: BASOPHILS % 0.5 % (0.0-2.0); EOSINOPHILS % 3.6 % (0.0-5.0); HEMATOCRIT. 30.4 % (42.0-52.0); LYMPHOCYTES % 11.9 % (20.0-50.0); MEAN CORPUSCULAR HEMOGLOBIN 28.7 pg (28.0-32.0); MEAN PLATELET VOLUME 7.4 fl (7.4-10.4); MONOCYTES % 6.7 % (2.0-8.0); NEUTROPHILS % 77.3 % (40.0-76.0); PLATELET 400 x1000/uL (130-400); RED BLOOD CELL COUNT 3.49 mill/uL (4.7-6.1)
[2019-05-19 12:42] LABS: CHLORIDE 105 mEq/L (98-107)
== END 2019-05-19 14:10 | disposition home health service (06) | DRG 91 ==
PROVIDERS: ADMIT Physical Medicine & Rehabilitation Spinal Cord Injury Medicine; ATTEND Family Medicine Adult Medicine
DX: G92 Toxic encephalopathy (principal); I21.4 Non-ST elevation (NSTEMI) myocardial infarction; A41.9 Sepsis, unspecified organism; K29.71 Gastritis, unspecified, with bleeding; L03.113 Cellulitis of right upper limb; N17.9 Acute kidney failure, unspecified; J98.11 Atelectasis; K57.92 Diverticulitis of intestine, part unspecified, without perforation or abscess without bleeding; M48.02 Spinal stenosis, cervical region; R53.81 Other malaise; E78.00 Pure hypercholesterolemia, unspecified; M47.812 Spondylosis without myelopathy or radiculopathy, cervical region; I80.8 Phlebitis and thrombophlebitis of other sites; N18.9 Chronic kidney disease, unspecified; I12.9 Hypertensive chronic kidney disease with stage 1 through stage 4 chronic kidney disease, or unspecified chronic kidney disease; I25.10 Atherosclerotic heart disease of native coronary artery without angina pectoris; I73.9 Peripheral vascular disease, unspecified; I35.0 Nonrheumatic aortic (valve) stenosis; K59.00 Constipation, unspecified; E55.9 Vitamin D deficiency, unspecified; E78.5 Hyperlipidemia, unspecified; R09.02 Hypoxemia; D50.9 Iron deficiency anemia, unspecified; Z53.20 Procedure and treatment not carried out because of patient's decision for unspecified reasons; K57.90 Diverticulosis of intestine, part unspecified, without perforation or abscess without bleeding; Z85.46 Personal history of malignant neoplasm of prostate; Z95.5 Presence of coronary angioplasty implant and graft; Z86.73 Personal history of transient ischemic attack (TIA), and cerebral infarction without residual deficits
CPT/HCPCS: 36415; 36600; 71045; 71046; 74018; 80048; 80076; 81003; 82248; 82306; 82375; 82607; 82728; 82746; 82805; 83540; 83550; 83735; 84100; 84134; 84443; 92523; 92610; 93970; 97110; 97116; 97162; 97167; 97530; 97535; A6261; J1953; J1956; J7040; J7050

== ENCOUNTER 2021-06-24 15:00 | Inpatient (IN) | payer MEDICARE, OTHER ==
[~2021-06-24] VITALS: Ht 188 cm; Wt 105.2 kg
[~2021-06-24 15:00] MED LIST changes: -ASPI-1393 PO; +ASPI-1497 PO
[2021-06-24] MEDS ORDERED: HYDROCODONE/ACETAMINOPHEN 5/325MG TABLET PO ONE (17:30)
[2021-06-24] MEDS ORDERED: ONDANSETRON HCL 4MG/2ML INJ IV STA (19:20)
[2021-06-24] MEDS ORDERED: MORPHINE SULFATE 4 MG/ML CPJ (NOT FOR IM USE) IV STA (19:20)
[2021-06-24] MEDS ORDERED: SODIUM CHLORIDE 0.9% 1,000 ML IV ONE (19:30)
[2021-06-24 19:54] LABS: BASOPHILS % 0.5 % (0.0-2.0); EOSINOPHILS % 3.9 % (0.0-5.0); HEMATOCRIT. 31.2 % (42.0-52.0); HEMOGLOBIN. 10.4 g/dL (14.0-18.0); LYMPHOCYTES % 8.1 % (20.0-50.0); MEAN CORPUSCULAR HEMOGLOBIN 28.6 pg (28.0-32.0); MEAN CORPUSCULAR VOLUME 86.3 fL (80.0-94.0); MEAN PLATELET VOLUME 7.9 fl (7.4-10.4); MONOCYTES % 10.6 % (2.0-8.0); NEUTROPHILS % 76.9 % (40.0-76.0); PLATELET 335 x1000/uL (130-400); RED BLOOD CELL COUNT 3.62 mill/uL (4.7-6.1); RED CELL DISTRIBUTION WIDTH 13.5 % (11.6-14.6)
[2021-06-24 19:56] LABS: CHLORIDE 101 mEq/L (98-107)
[2021-06-24 20:01] LABS: PARTIAL THROMBOPLASTIN TIME 25.1 sec (23.4-31.0); PROTHROMBIN TIME 10.3 sec (9.6-11.0)
[2021-06-24] MEDS ORDERED: MORPHINE SULFATE 2 MG/ML CPJ (NOT FOR IM USE) IV NR (20:15)
[2021-06-24 21:14] VITALS: BP 109/61
[2021-06-24 22:00] VITALS: BP 139/80
[2021-06-24] MEDS ORDERED: NALOXONE HCL 0.4MG/ML VIAL IV PRN (22:15)
[2021-06-24] MEDS ORDERED: CLONIDINE 0.1MG TABLET PO PRN (22:45)
[2021-06-25] VITALS (20 sets, daily range): BP systolic 83–145; BP diastolic 41–77
[2021-06-25 00:42] LABS: CREATINE KINASE 1073 IU/L (39-308)
[2021-06-25] MEDS: SODIUM CHLORIDE 0.9% 1,000 ML IV SCH ×3 (05:39→23:18)
[2021-06-25 07:19] LABS: BASOPHILS % 0.4 % (0.0-2.0); EOSINOPHILS % 5.3 % (0.0-5.0); HEMATOCRIT. 28.4 % (42.0-52.0); HEMOGLOBIN. 9.4 g/dL (14.0-18.0); LYMPHOCYTES % 9.9 % (20.0-50.0); MEAN CORPUSCULAR HEMOGLOBIN 28.9 pg (28.0-32.0); MEAN CORPUSCULAR VOLUME 87.2 fL (80.0-94.0); MEAN PLATELET VOLUME 8.3 fl (7.4-10.4); NEUTROPHILS % 70.4 % (40.0-76.0); PLATELET 296 x1000/uL (130-400); RED BLOOD CELL COUNT 3.25 mill/uL (4.7-6.1); RED CELL DISTRIBUTION WIDTH 13.5 % (11.6-14.6)
[2021-06-25] MEDS ORDERED: PNEUMOCOCCAL 23-VAL P-SAC VAC 0.5 ML IM ONE (08:00)
[2021-06-25] MEDS ORDERED: LOSARTAN POTASSIUM 25 MG TABLET PO SCH (09:00)
[2021-06-25] MEDS ORDERED: VANCOMYCIN HCL 1 GM/VIAL ONE (15:30)
[2021-06-25] MEDS ORDERED: BUPIVACAINE HCL/PF 0.25% (2.5MG/ML) 10ML ONE (15:31)
[2021-06-25] MEDS ORDERED: EPINEPHRINE 1:1000 1 MG/ML AMP ONE (15:31)
[2021-06-25] MEDS ORDERED: GLYCOPYRROLATE 0.2 MG/ML 2ML VIAL ONE (17:09)
[2021-06-25] MEDS ORDERED: MIDAZOLAM HCL 2 MG/2 ML VIAL ONE ×2 (17:09→18:17)
[2021-06-25] MEDS ORDERED: PROPOFOL 200MG/20ML VIAL IV ONE (17:09)
[2021-06-25] MEDS ORDERED: NEOSTIGMINE METHYLSULFATE 1MG/ML 10 ML VIAL ONE (17:09)
[2021-06-25] MEDS ORDERED: PHENYLEPHRINE HCL 10 MG/ML 1ML (IV VIAL) IV ONE (17:09)
[2021-06-25] MEDS ORDERED: FENTANYL CITRATE/PF 50MCG/ML 2ML VIAL ONE ×2 (17:09→19:49)
[2021-06-25] MEDS ORDERED: ROCURONIUM BROMIDE 10MG/ML VIAL 5ML IV ONE ×3 (17:09→18:48)
[2021-06-25] MEDS ORDERED: METOCLOPRAMIDE HCL 10MG/2ML VIAL ONE (17:10)
[2021-06-25] MEDS ORDERED: SODIUM CHLORIDE 0.9% 10ML VIAL ONE (17:10)
[2021-06-25] MEDS ORDERED: ONDANSETRON HCL 4MG/2ML INJ ONE (17:10)
[2021-06-25] MEDS ORDERED: SUCCINYLCHOLINE CHLORIDE 200MG/10ML IV ONE (17:10)
[2021-06-25] MEDS ORDERED: CEFAZOLIN SODIUM 1000MG/VIAL ONE (17:10)
[2021-06-25] MEDS ORDERED: ETOMIDATE 2MG/ML 10ML VIAL IV ONE (18:55)
[2021-06-25 19:14] LABS: BASOPHILS % 0.7 % (0.0-2.0); HEMATOCRIT. 27.1 % (42.0-52.0); HEMOGLOBIN. 9.4 g/dL (14.0-18.0); LYMPHOCYTES % 12.7 % (20.0-50.0); MEAN CORPUSCULAR VOLUME 83.8 fL (80.0-94.0); MEAN PLATELET VOLUME 7.6 fl (7.4-10.4); MONOCYTES % 10.4 % (2.0-8.0); NEUTROPHILS % 71.2 % (40.0-76.0); PLATELET 227 x1000/uL (130-400); RED BLOOD CELL COUNT 3.23 mill/uL (4.7-6.1); RED CELL DISTRIBUTION WIDTH 13.9 % (11.6-14.6)
[2021-06-25] MEDS ORDERED: ALBUMIN HUMAN 12.5G/250ML (5%) IV ONE (19:33)
[2021-06-25] MEDS: ATORVASTATIN CALCIUM 40MG TABLET PO SCH (21:00)
[2021-06-25 21:51] LABS: BG CARBOXYHEMOGLOBIN 0.6 % (0.5-1.5); BG DEOXYHEMOGLOBIN 1.6 % (0.0-5.0); BG FRACTION INSPIRED OXYGEN 50; BG HCO3 ACT 18.7 mmol/L (22.0-26.0); BG METHEMOGLOBIN 0.2 % (0.0-1.5); BG OXYGEN SATURATION 98.4 % (92.0-98.5); BG OXYHEMOGLOBIN 97.6 % (94.0-97.0); BG PCO2 33.9 mmHg (35.0-45.0); BG PO2 163.3 mmHg (75.0-100.0); BG SAMPLE SITE ALINE; BG TOTAL HEMOGLOBIN 9.2 g/dL (12.0-18.0); BG VENT MODE VENT - AC
[2021-06-25] MEDS ORDERED: CEFAZOLIN SODIUM 1000MG/VIAL IV SCH (22:00)
[2021-06-25] MEDS ORDERED: MIDAZOLAM HCL 100 MG in SODIUM CHLORIDE 0.9% 80 ML IV PRN (22:30)
[2021-06-25] MEDS ORDERED: NOREPINEPHRINE 32 MG in DEXT 5% WATER 218 ML IV PRN (22:30)
[2021-06-25] MEDS: CEFAZOLIN 1000MG PREMIX 50 ML IV SCH (22:52)
[2021-06-25] MEDS ORDERED: FENTANYL CITRATE/PF 2,500 MCG in SODIUM CHLORIDE 0.9% 200 ML IV PRN (23:00)
[2021-06-25 23:15] LABS: HEMATOCRIT. 26.6 % (42.0-52.0); HEMOGLOBIN. 8.8 g/dL (14.0-18.0); MEAN CORPUSCULAR HEMOGLOBIN 28.4 pg (28.0-32.0); MEAN CORPUSCULAR VOLUME 85.9 fL (80.0-94.0); MEAN PLATELET VOLUME 8.1 fl (7.4-10.4); PLATELET 255 x1000/uL (130-400); RED BLOOD CELL COUNT 3.09 mill/uL (4.7-6.1); RED CELL DISTRIBUTION WIDTH 13.8 % (11.6-14.6)
[2021-06-26] VITALS (77 sets, daily range): BP systolic 69–147; BP diastolic 30–99
[2021-06-26 00:20] LABS: PLATELET ESTIMATE NORMAL
[2021-06-26] MEDS: SODIUM CHLORIDE 0.9% 1,000 ML IV SCH ×2 (01:11→12:00)
[2021-06-26] MEDS: CEFAZOLIN 1000MG PREMIX 50 ML IV SCH ×3 (07:49→22:39)
[2021-06-26 08:50] LABS: BG BASE EXCESS -6.4 mmol/L (-2.0-2.0); BG CARBOXYHEMOGLOBIN 0.9 % (0.5-1.5); BG DEOXYHEMOGLOBIN 1.6 % (0.0-5.0); BG FRACTION INSPIRED OXYGEN 50; BG METHEMOGLOBIN 0.3 % (0.0-1.5); BG OXYGEN SATURATION 98.4 % (92.0-98.5); BG OXYHEMOGLOBIN 97.2 % (94.0-97.0); BG PCO2 37.1 mmHg (35.0-45.0); BG PH 7.327 (7.350-7.450); BG PO2 149.6 mmHg (75.0-100.0); BG SAMPLE SITE ALINE; BG TOTAL HEMOGLOBIN 8.7 g/dL (12.0-18.0); BG TOTAL RESPIRATORY RATE 10 b/min; BG VENT MODE VENT - AC
[2021-06-26 09:39] LABS: HEMATOCRIT. 30.3 % (42.0-52.0); HEMOGLOBIN. 9.9 g/dL (14.0-18.0); MEAN CORPUSCULAR HEMOGLOBIN 28.8 pg (28.0-32.0); MEAN CORPUSCULAR VOLUME 88.3 fL (80.0-94.0); MEAN PLATELET VOLUME 8.5 fl (7.4-10.4); PLATELET 269 x1000/uL (130-400); RED BLOOD CELL COUNT 3.43 mill/uL (4.7-6.1); RED CELL DISTRIBUTION WIDTH 14.7 % (11.6-14.6)
[2021-06-26 10:30] LABS: PLATELET ESTIMATE NORMAL
[2021-06-26] MEDS: CITRIC ACID/SODIUM CITRATE SOLN 30ML UDC PO SCH ×2 (12:00→17:39)
[2021-06-26 13:43] LABS: CLARITY URINE CLEAR (CLEAR); COLOR URINE YELLOW (YELLOW); KETONES URINE 1+ (NEGATIVE); LEUKOCYTE ESTERASE URINE NEGATIVE (NEGATIVE); NITRITE URINE NEGATIVE (NEGATIVE); OCCULT BLOOD URINE 3+ (NEGATIVE); PH URINE 5.5 (4.5-8.0); PROTEIN URINE 1+ (NEGATIVE)
[2021-06-26] MEDS: ATORVASTATIN CALCIUM 40MG TABLET PO SCH (20:43)
[2021-06-26] MEDS: HYDROCODONE/ACETAMINOPHEN 5/325MG TABLET PO PRN (22:46)
[2021-06-27] VITALS (48 sets, daily range): BP systolic 22–111; BP diastolic 15–85
[2021-06-27] MEDS: SODIUM CHLORIDE 0.9% 1,000 ML IV SCH ×2 (01:11→09:46)
[2021-06-27] MEDS: HYDROCODONE/ACETAMINOPHEN 5/325MG TABLET PO PRN ×3 (02:41→20:39)
[2021-06-27 05:37] LABS: HEMATOCRIT. 21.9 % (42.0-52.0); HEMOGLOBIN. 7.3 g/dL (14.0-18.0); MEAN CORPUSCULAR VOLUME 87.5 fL (80.0-94.0); PLATELET 222 x1000/uL (130-400); RED CELL DISTRIBUTION WIDTH 14.4 % (11.6-14.6)
[2021-06-27 05:45] LABS: CHLORIDE 108 mEq/L (98-107)
[2021-06-27] MEDS: DOCUSATE SODIUM SUGAR FREE 100MG/10ML UDC NG SCH (09:46)
[2021-06-27] MEDS ORDERED: PANTOPRAZOLE SODIUM 40 MG/VIAL IV SCH (10:15)
[2021-06-27 14:19] LABS: PLATELET ESTIMATE NORMAL
[2021-06-27] MEDS ORDERED: ALBUMIN HUMAN 25GM/500ML (5%) IV PRN (15:15)
[2021-06-27] MEDS: MIDODRINE HCL 2.5MG TABLET PO SCH ×2 (17:11→21:30)
[2021-06-27] MEDS: ATORVASTATIN CALCIUM 40MG TABLET PO SCH (20:36)
[2021-06-28] VITALS (84 sets, daily range): BP systolic 46–151; BP diastolic 16–127
[2021-06-28 01:08] LABS: HEMOGLOBIN 8.9 g/dL (14.0-18.0)
[2021-06-28] MEDS: SODIUM CHLORIDE 0.9% 1,000 ML IV SCH (02:42)
[2021-06-28] MEDS: NOREPINEPHRINE 32 MG in DEXT 5% WATER 218 ML IV PRN (02:56)
[2021-06-28 05:34] LABS: HEMATOCRIT. 27.7 % (42.0-52.0); HEMOGLOBIN. 9.1 g/dL (14.0-18.0); MEAN CORPUSCULAR HEMOGLOBIN 28.7 pg (28.0-32.0); MEAN PLATELET VOLUME 8.2 fl (7.4-10.4); PLATELET 268 x1000/uL (130-400); RED BLOOD CELL COUNT 3.18 mill/uL (4.7-6.1); RED CELL DISTRIBUTION WIDTH 14.5 % (11.6-14.6)
[2021-06-28 05:57] LABS: CHLORIDE 108 mEq/L (98-107)
[2021-06-28 06:04] LABS: TOTAL IRON BINDING CAPACITY 161 ug/dL (250-450)
[2021-06-28 06:05] LABS: FERRITIN 421 ng/mL (22-322)
[2021-06-28 06:08] LABS: FOLIC ACID (FOLATE) SERUM > 20.00 ng/mL (>5.38)
[2021-06-28 06:17] LABS: VITAMIN B12 SERUM 888 pg/mL (211-911)
[2021-06-28] MEDS: DOCUSATE SODIUM SUGAR FREE 100MG/10ML UDC NG SCH (08:50)
[2021-06-28] MEDS: MIDODRINE HCL 2.5MG TABLET PO SCH ×3 (08:50→17:18)
[2021-06-28] MEDS: PANTOPRAZOLE SODIUM 40 MG/VIAL IV SCH (08:51)
[2021-06-28 10:17] LABS: PLATELET ESTIMATE NORMAL
[2021-06-28 11:25] LABS: BG CARBOXYHEMOGLOBIN 0.3 % (0.5-1.5); BG DEOXYHEMOGLOBIN 7.2 % (0.0-5.0); BG FRACTION INSPIRED OXYGEN 44; BG HCO3 ACT 23.3 mmol/L (22.0-26.0); BG METHEMOGLOBIN 0.1 % (0.0-1.5); BG OXYGEN SATURATION 92.8 % (92.0-98.5); BG OXYHEMOGLOBIN 92.4 % (94.0-97.0); BG PCO2 54.2 mmHg (35.0-45.0); BG PH 7.252 (7.350-7.450); BG PO2 74.1 mmHg (75.0-100.0); BG SAMPLE SITE RIGHT BRACHIAL; BG TOTAL HEMOGLOBIN 9.7 g/dL (12.0-18.0); BG VENT MODE NASAL CANNULA
[2021-06-28 12:28] LABS: HEMATOCRIT 27.9 % (42.0-52.0); HEMOGLOBIN 8.9 g/dL (14.0-18.0)
[2021-06-28] MEDS: BISACODYL 5MG TABLET PO PRN (12:46)
[2021-06-28] MEDS ORDERED: NA PHOS,M-B/NA PHOS,DI-BA ENEMA 118ML PR NR (13:45)
[2021-06-28 15:36] LABS: HEPATITIS B SURFACE ANTIGEN NEGATIVE
[2021-06-28] MEDS: IRON SUCROSE COMPLEX 100 MG/5 ML ML IV SCH (17:17)
[2021-06-28] MEDS: ASPIRIN 81MG TABLET PO SCH (17:17)
[2021-06-28 20:14] LABS: HEMATOCRIT 25.9 % (42.0-52.0); HEMOGLOBIN 8.5 g/dL (14.0-18.0)
[2021-06-29] VITALS (94 sets, daily range): BP systolic 48–140; BP diastolic 27–85
[2021-06-29] MEDS: NOREPINEPHRINE 32 MG in DEXT 5% WATER 218 ML IV PRN ×3 (00:37→19:12)
[2021-06-29 00:56] LABS: HEMATOCRIT 25.5 % (42.0-52.0); HEMOGLOBIN 8.4 g/dL (14.0-18.0)
[2021-06-29] MEDS: SODIUM CHLORIDE 0.9% 1,000 ML IV SCH (01:55)
[2021-06-29 05:27] LABS: HEMATOCRIT. 27.2 % (42.0-52.0); HEMOGLOBIN. 8.9 g/dL (14.0-18.0); MEAN CORPUSCULAR HEMOGLOBIN 29.1 pg (28.0-32.0); MEAN CORPUSCULAR VOLUME 88.9 fL (80.0-94.0); MEAN PLATELET VOLUME 8.2 fl (7.4-10.4); PLATELET 215 x1000/uL (130-400); RED BLOOD CELL COUNT 3.06 mill/uL (4.7-6.1); RED CELL DISTRIBUTION WIDTH 14.9 % (11.6-14.6)
[2021-06-29] MEDS ORDERED: SODIUM POLYSTYRENE SULFONATE 15 G/60 ML BOT PO SCH (06:45)
[2021-06-29] MEDS: DOCUSATE SODIUM SUGAR FREE 100MG/10ML UDC NG SCH (08:18)
[2021-06-29] MEDS: PANTOPRAZOLE SODIUM 40 MG/VIAL IV SCH (08:18)
[2021-06-29] MEDS: MIDODRINE HCL 2.5MG TABLET PO SCH ×3 (08:18→19:42)
[2021-06-29] MEDS: ASPIRIN 81MG TABLET PO SCH (08:18)
[2021-06-29] MEDS ORDERED: DEXTROSE 50% WATER 50ML SYRINGE IV SCH (08:30)
[2021-06-29] MEDS ORDERED: INSULIN REGULAR (HUMULIN R) 300UNITS/3ML VIAL IV SCH (08:30)
[2021-06-29 09:06] LABS: PLATELET ESTIMATE NORMAL
[2021-06-29] MEDS ORDERED: CEFEPIME 1,000 MG in DEXTROSE 5% WATER 50 ML IV SCH (10:00)
[2021-06-29] MEDS ORDERED: BISACODYL 10MG SUPP PR SCH (12:00)
[2021-06-29] MEDS: CEFEPIME 1,000 MG in DEXTROSE 5% WATER 50 ML IV SCH (13:25)
[2021-06-29 13:46] LABS: BG BASE EXCESS -2.8 mmol/L (-2.0-2.0); BG DEOXYHEMOGLOBIN 6.5 % (0.0-5.0); BG FRACTION INSPIRED OXYGEN 40; BG HCO3 ACT 25.2 mmol/L (22.0-26.0); BG METHEMOGLOBIN 0.3 % (0.0-1.5); BG OXYGEN SATURATION 93.5 % (92.0-98.5); BG OXYHEMOGLOBIN 93.2 % (94.0-97.0); BG PCO2 60.8 mmHg (35.0-45.0); BG PH 7.235 (7.350-7.450); BG PO2 76.2 mmHg (75.0-100.0); BG SAMPLE SITE LEFT RADIAL; BG TOTAL HEMOGLOBIN 9.9 g/dL (12.0-18.0); BG VENT MODE NASAL CANNULA
[2021-06-29] MEDS ORDERED: ALBUMIN HUMAN 25GM/100ML (25%) IV SCH (15:00)
[2021-06-29 17:59] LABS: SODIUM URINE RANDOM < 5 mEq/L
[2021-06-29] MEDS: IRON SUCROSE COMPLEX 100 MG/5 ML ML IV SCH (19:42)
[2021-06-29] MEDS ORDERED: ENOXAPARIN 60MG/0.6ML SYR SUBCUT NR (20:15)
[2021-06-29] MEDS: IPRATROPIUM/ALBUTEROL 0.5-3(2.5)MG/3ML NEB HHN SCH (20:50)
[2021-06-30] VITALS (96 sets, daily range): BP systolic 39–167; BP diastolic 22–99
[2021-06-30] MEDS ORDERED: VANCOMYCIN 1500MG in DEXTROSE 5% WATER 250ML IV NR
[2021-06-30] MEDS: IPRATROPIUM/ALBUTEROL 0.5-3(2.5)MG/3ML NEB HHN SCH ×6 (00:16→20:18)
[2021-06-30] MEDS: BUDESONIDE 0.5MG/2ML NEB HHN SCH ×3 (00:30→20:18)
[2021-06-30 05:44] LABS: HEMATOCRIT. 28.3 % (42.0-52.0); HEMOGLOBIN. 9.1 g/dL (14.0-18.0); MEAN CORPUSCULAR HEMOGLOBIN 28.2 pg (28.0-32.0); MEAN PLATELET VOLUME 8.3 fl (7.4-10.4); PLATELET 222 x1000/uL (130-400); RED BLOOD CELL COUNT 3.22 mill/uL (4.7-6.1); RED CELL DISTRIBUTION WIDTH 14.8 % (11.6-14.6)
[2021-06-30 05:50] LABS: CHLORIDE 105 mEq/L (98-107)
[2021-06-30 06:00] LABS: CREATINE KINASE 360 IU/L (39-308)
[2021-06-30 06:04] LABS: CREATINE KINASE MB FRACTION 9.5 ng/mL (0.5-3.6)
[2021-06-30] MEDS ORDERED: LIDOCAINE HCL 1% 20ML VIAL (Pyxis) INJ ONE (09:29)
[2021-06-30] MEDS: CEFEPIME 1,000 MG in DEXTROSE 5% WATER 50 ML IV SCH (10:18)
[2021-06-30] MEDS: PANTOPRAZOLE SODIUM 40 MG/VIAL IV SCH (10:18)
[2021-06-30] MEDS: ASPIRIN 81MG TABLET PO SCH (10:19)
[2021-06-30] MEDS: BISACODYL 5MG TABLET PO PRN (10:19)
[2021-06-30] MEDS: MIDODRINE HCL 2.5MG TABLET PO SCH ×2 (10:19→17:06)
[2021-06-30] MEDS: LINEZOLID 600 MG PREMIX 300 ML IV SCH ×2 (10:19→21:03)
[2021-06-30] MEDS: DOCUSATE SODIUM SUGAR FREE 100MG/10ML UDC NG SCH (10:22)
[2021-06-30 13:06] LABS: NUCLEATED RED BLOOD CELLS 1 /100 WBC
[2021-06-30 13:07] LABS: PLATELET ESTIMATE NORMAL
[2021-06-30 13:16] LABS: BG BASE EXCESS -1.4 mmol/L (-2.0-2.0); BG CARBOXYHEMOGLOBIN 0.4 % (0.5-1.5); BG DEOXYHEMOGLOBIN 4.6 % (0.0-5.0); BG FRACTION INSPIRED OXYGEN 30; BG HCO3 ACT 23.8 mmol/L (22.0-26.0); BG METHEMOGLOBIN 0.2 % (0.0-1.5); BG OXYGEN SATURATION 95.4 % (92.0-98.5); BG OXYHEMOGLOBIN 94.8 % (94.0-97.0); BG PCO2 41.8 mmHg (35.0-45.0); BG PH 7.373 (7.350-7.450); BG PO2 79.4 mmHg (75.0-100.0); BG SAMPLE SITE LEFT RADIAL; BG TOTAL HEMOGLOBIN 9.5 g/dL (12.0-18.0); BG TOTAL RESPIRATORY RATE 21 b/min; BG VENT MODE MASK - BIPAP
[2021-06-30] MEDS: NOREPINEPHRINE 32 MG in DEXT 5% WATER 218 ML IV PRN (17:05)
[2021-06-30] MEDS: ENOXAPARIN 40MG/0.4ML SYR SUBCUT SCH (17:06)
[2021-06-30] MEDS: IRON SUCROSE COMPLEX 100 MG/5 ML ML IV SCH (17:06)
[2021-06-30] MEDS: LACTULOSE 20G/30ML UDC PO PRN (18:14)
[2021-07-01] VITALS (71 sets, daily range): BP systolic 75–136; BP diastolic 25–84
[2021-07-01] MEDS: IPRATROPIUM/ALBUTEROL 0.5-3(2.5)MG/3ML NEB HHN SCH ×6 (00:25→20:26)
[2021-07-01] MEDS: MIDODRINE HCL 2.5MG TABLET PO SCH ×3 (00:34→18:17)
[2021-07-01 05:49] LABS: HEMATOCRIT. 25.4 % (42.0-52.0); HEMOGLOBIN. 8.4 g/dL (14.0-18.0); MEAN CORPUSCULAR HEMOGLOBIN 29.1 pg (28.0-32.0); MEAN CORPUSCULAR VOLUME 87.7 fL (80.0-94.0); MEAN PLATELET VOLUME 8.2 fl (7.4-10.4); PLATELET 216 x1000/uL (130-400); RED CELL DISTRIBUTION WIDTH 14.8 % (11.6-14.6)
[2021-07-01] MEDS ORDERED: POTASSIUM CHLORIDE 20MEQ TABLET SR PO NR (07:45)
[2021-07-01] MEDS: PANTOPRAZOLE SODIUM 40 MG/VIAL IV SCH (08:59)
[2021-07-01] MEDS: ASPIRIN 81MG TABLET PO SCH (08:59)
[2021-07-01] MEDS: CEFEPIME 1,000 MG in DEXTROSE 5% WATER 50 ML IV SCH (09:00)
[2021-07-01] MEDS: LINEZOLID 600 MG PREMIX 300 ML IV SCH ×2 (09:00→22:03)
[2021-07-01] MEDS: DOCUSATE SODIUM SUGAR FREE 100MG/10ML UDC NG SCH (09:00)
[2021-07-01] MEDS: BUDESONIDE 0.5MG/2ML NEB HHN SCH ×2 (09:20→20:26)
[2021-07-01 14:26] LABS: PLATELET ESTIMATE NORMAL
[2021-07-01] MEDS: ENOXAPARIN 40MG/0.4ML SYR SUBCUT SCH (18:16)
[2021-07-02] VITALS (11 sets, daily range): BP systolic 82–119; BP diastolic 29–82
[2021-07-02] MEDS: MIDODRINE HCL 2.5MG TABLET PO SCH ×4 (00:24→23:44)
[2021-07-02] MEDS: IPRATROPIUM/ALBUTEROL 0.5-3(2.5)MG/3ML NEB HHN SCH ×6 (00:54→22:28)
[2021-07-02 06:24] LABS: HEMATOCRIT. 24.3 % (42.0-52.0); HEMOGLOBIN. 8.1 g/dL (14.0-18.0); MEAN CORPUSCULAR VOLUME 86.8 fL (80.0-94.0); MEAN PLATELET VOLUME 7.7 fl (7.4-10.4); PLATELET 229 x1000/uL (130-400); RED CELL DISTRIBUTION WIDTH 14.6 % (11.6-14.6)
[2021-07-02 06:38] LABS: CHLORIDE 107 mEq/L (98-107)
[2021-07-02] MEDS: BUDESONIDE 0.5MG/2ML NEB HHN SCH ×2 (07:53→22:28)
[2021-07-02] MEDS: DOCUSATE SODIUM SUGAR FREE 100MG/10ML UDC NG SCH (08:43)
[2021-07-02] MEDS: ASPIRIN 81MG TABLET PO SCH (08:43)
[2021-07-02] MEDS: PANTOPRAZOLE SODIUM 40 MG/VIAL IV SCH (08:44)
[2021-07-02] MEDS: CEFEPIME 1,000 MG in DEXTROSE 5% WATER 50 ML IV SCH (08:44)
[2021-07-02] MEDS: LINEZOLID 600 MG PREMIX 300 ML IV SCH ×2 (10:05→20:15)
[2021-07-02 16:00] LABS: PLATELET ESTIMATE NORMAL
[2021-07-02] MEDS: ENOXAPARIN 40MG/0.4ML SYR SUBCUT SCH (17:58)
[2021-07-03] VITALS (11 sets, daily range): BP systolic 101–132; BP diastolic 46–86
[2021-07-03] MEDS: IPRATROPIUM/ALBUTEROL 0.5-3(2.5)MG/3ML NEB HHN SCH ×2 (01:26→21:39)
[2021-07-03 06:13] LABS: HEMATOCRIT. 25.3 % (42.0-52.0); HEMOGLOBIN. 8.2 g/dL (14.0-18.0); MEAN CORPUSCULAR HEMOGLOBIN 28.4 pg (28.0-32.0); MEAN CORPUSCULAR VOLUME 87.1 fL (80.0-94.0); MEAN PLATELET VOLUME 7.8 fl (7.4-10.4); PLATELET 275 x1000/uL (130-400)
[2021-07-03 06:24] LABS: CHLORIDE 104 mEq/L (98-107)
[2021-07-03] MEDS: ASPIRIN 81MG TABLET PO SCH ×2 (09:00→09:42)
[2021-07-03] MEDS: PANTOPRAZOLE SODIUM 40 MG/VIAL IV SCH (09:00)
[2021-07-03] MEDS: CEFEPIME 1,000 MG in DEXTROSE 5% WATER 50 ML IV SCH (09:29)
[2021-07-03] MEDS: MIDODRINE HCL 5MG TABLET PO SCH ×3 (09:42→21:05)
[2021-07-03] MEDS: DOCUSATE SODIUM SUGAR FREE 100MG/10ML UDC NG SCH (09:42)
[2021-07-03] MEDS: LINEZOLID 600 MG PREMIX 300 ML IV SCH (09:43)
[2021-07-03] MEDS ORDERED: THROAT LOZENGES-BENZOCAINE/MENTH/CETYLPYRD CL LOZENGES MM PRN (11:00)
[2021-07-03] MEDS: FLUTICASONE PROPIONATE 50MCG/SPRAY BOTTLE BOTHNSTRLS SCH ×2 (13:10→21:05)
[2021-07-03] MEDS: ENOXAPARIN 40MG/0.4ML SYR SUBCUT SCH (17:35)
[2021-07-03 17:48] LABS: PLATELET ESTIMATE NORMAL
[2021-07-03] MEDS ORDERED: LACTULOSE 20G/30ML UDC PO ONE (19:00)
[2021-07-03] MEDS ORDERED: LINEZOLID 600MG TABLET PO SCH (21:00)
[2021-07-04] VITALS: BP 134/87
[2021-07-04 04:00] VITALS: BP 142/77
[2021-07-04] MEDS: IPRATROPIUM/ALBUTEROL 0.5-3(2.5)MG/3ML NEB HHN SCH ×5 (04:56→16:43)
[2021-07-04] MEDS: PANTOPRAZOLE 40MG DR TABLET PO SCH (06:40)
[2021-07-04] MEDS: MIDODRINE HCL 5MG TABLET PO SCH ×3 (06:40→20:13)
[2021-07-04 07:58] LABS: HEMATOCRIT. 25.7 % (42.0-52.0); HEMOGLOBIN. 8.4 g/dL (14.0-18.0); MEAN CORPUSCULAR VOLUME 88.3 fL (80.0-94.0); MEAN PLATELET VOLUME 7.8 fl (7.4-10.4); PLATELET 304 x1000/uL (130-400); RED BLOOD CELL COUNT 2.92 mill/uL (4.7-6.1); RED CELL DISTRIBUTION WIDTH 15.1 % (11.6-14.6)
[2021-07-04 08:00] VITALS: BP 145/93
[2021-07-04] MEDS: FLUTICASONE PROPIONATE 50MCG/SPRAY BOTTLE BOTHNSTRLS SCH ×2 (09:52→20:13)
[2021-07-04] MEDS: POLYETHYLENE GLYCOL 3350 (17GM) 1 DOSE PACK PO SCH (09:52)
[2021-07-04] MEDS: ASPIRIN 81MG TABLET PO SCH (09:53)
[2021-07-04] MEDS: CEFEPIME 1,000 MG in DEXTROSE 5% WATER 50 ML IV SCH (09:53)
[2021-07-04] MEDS: DOCUSATE SODIUM SUGAR FREE 100MG/10ML UDC NG SCH (09:53)
[2021-07-04 12:00] VITALS: BP 126/83
[2021-07-04] MEDS ORDERED: SORBITOL 70% SOLN 30ML PO NR (15:30)
[2021-07-04 16:00] VITALS: BP 139/66
[2021-07-04] MEDS ORDERED: BISACODYL 10MG SUPP PR PRN (17:45)
[2021-07-04] MEDS: ENOXAPARIN 40MG/0.4ML SYR SUBCUT SCH (18:14)
[2021-07-04 20:00] VITALS: BP 113/68
[2021-07-04] MEDS: SENNOSIDES/DOCUSATE SOD 8.6/50MG TABLET PO SCH (20:13)
[2021-07-04] MEDS: DILTIAZEM HCL 60MG TABLET PO SCH (23:22)
[2021-07-05] VITALS (52 sets, daily range): BP systolic 91–138; BP diastolic 55–91
[2021-07-05] MEDS: IPRATROPIUM/ALBUTEROL 0.5-3(2.5)MG/3ML NEB HHN SCH ×6 (01:05→20:37)
[2021-07-05 05:39] LABS: CHLORIDE 107 mEq/L (98-107)
[2021-07-05 05:41] LABS: HEMATOCRIT. 29.8 % (42.0-52.0); HEMOGLOBIN. 9.6 g/dL (14.0-18.0); MEAN CORPUSCULAR HEMOGLOBIN 29.2 pg (28.0-32.0); MEAN CORPUSCULAR VOLUME 90.2 fL (80.0-94.0); MEAN PLATELET VOLUME 7.5 fl (7.4-10.4); PLATELET 378 x1000/uL (130-400); RED CELL DISTRIBUTION WIDTH 15.5 % (11.6-14.6)
[2021-07-05 05:44] LABS: PLATELET ESTIMATE NORMAL
[2021-07-05] MEDS: PANTOPRAZOLE 40MG DR TABLET PO SCH (07:20)
[2021-07-05 08:06] LABS: BG CARBOXYHEMOGLOBIN 0.3 % (0.5-1.5); BG DEOXYHEMOGLOBIN 3.2 % (0.0-5.0); BG FRACTION INSPIRED OXYGEN 99.8; BG HCO3 ACT 32.2 mmol/L (22.0-26.0); BG METHEMOGLOBIN 0.3 % (0.0-1.5); BG OXYGEN SATURATION 96.8 % (92.0-98.5); BG OXYHEMOGLOBIN 96.2 % (94.0-97.0); BG PCO2 99.1 mmHg (35.0-45.0); BG PH 7.129 (7.350-7.450); BG PO2 108.4 mmHg (75.0-100.0); BG SAMPLE SITE LEFT BRACHIAL; BG TOTAL HEMOGLOBIN 10.5 g/dL (12.0-18.0); BG VENT MODE MASK - NRB
[2021-07-05] MEDS: ASPIRIN 81MG TABLET PO SCH (09:40)
[2021-07-05] MEDS: POLYETHYLENE GLYCOL 3350 (17GM) 1 DOSE PACK PO SCH (09:45)
[2021-07-05 10:23] LABS: BG BASE EXCESS 4.4 mmol/L (-2.0-2.0); BG CARBOXYHEMOGLOBIN 0.2 % (0.5-1.5); BG DEOXYHEMOGLOBIN 9.6 % (0.0-5.0); BG FRACTION INSPIRED OXYGEN 30; BG HCO3 ACT 30.7 mmol/L (22.0-26.0); BG OXYGEN SATURATION 90.4 % (92.0-98.5); BG OXYHEMOGLOBIN 90.2 % (94.0-97.0); BG PCO2 55.3 mmHg (35.0-45.0); BG PH 7.362 (7.350-7.450); BG PO2 58.8 mmHg (75.0-100.0); BG SAMPLE SITE LEFT BRACHIAL; BG TOTAL HEMOGLOBIN 9.6 g/dL (12.0-18.0); BG TOTAL RESPIRATORY RATE 24 b/min; BG VENT MODE MASK - BIPAP
[2021-07-05 10:32] LABS: NUCLEATED RED BLOOD CELLS 3 /100 WBC; PLATELET ESTIMATE NORMAL
[2021-07-05] MEDS: MIDODRINE HCL 5MG TABLET PO SCH ×2 (14:00→21:25)
[2021-07-05] MEDS: DILTIAZEM HCL 60MG TABLET PO SCH ×2 (14:00→21:25)
[2021-07-05] MEDS: ENOXAPARIN 40MG/0.4ML SYR SUBCUT SCH (18:00)
[2021-07-05] MEDS ORDERED: DEXT 5%/0.9% NACL 1,000 ML IV SCH (20:30)
[2021-07-05] MEDS: SENNOSIDES/DOCUSATE SOD 8.6/50MG TABLET PO SCH (20:34)
[2021-07-05] MEDS: FLUTICASONE PROPIONATE 50MCG/SPRAY BOTTLE BOTHNSTRLS SCH (21:24)
[2021-07-05] MEDS: CEFEPIME 1,000 MG in DEXTROSE 5% WATER 50 ML IV SCH (22:27)
[2021-07-06] VITALS (22 sets, daily range): BP systolic 93–119; BP diastolic 56–79
[2021-07-06] MEDS ORDERED: VANCOMYCIN 1 G PREMIX 200 ML IV NR
[2021-07-06] MEDS: IPRATROPIUM/ALBUTEROL 0.5-3(2.5)MG/3ML NEB HHN SCH ×6 (00:40→20:26)
[2021-07-06] MEDS: MIDODRINE HCL 5MG TABLET PO SCH ×3 (05:42→22:19)
[2021-07-06] MEDS: DILTIAZEM HCL 60MG TABLET PO SCH ×3 (05:42→21:43)
[2021-07-06 06:03] LABS: HEMATOCRIT. 23.6 % (42.0-52.0); HEMOGLOBIN. 7.7 g/dL (14.0-18.0); MEAN CORPUSCULAR HEMOGLOBIN 29.1 pg (28.0-32.0); MEAN CORPUSCULAR VOLUME 89.7 fL (80.0-94.0); MEAN PLATELET VOLUME 7.8 fl (7.4-10.4); PLATELET 260 x1000/uL (130-400); RED BLOOD CELL COUNT 2.63 mill/uL (4.7-6.1); RED CELL DISTRIBUTION WIDTH 15.5 % (11.6-14.6)
[2021-07-06 06:13] LABS: CHLORIDE 107 mEq/L (98-107)
[2021-07-06] MEDS: POLYETHYLENE GLYCOL 3350 (17GM) 1 DOSE PACK PO SCH (08:28)
[2021-07-06] MEDS: FLUTICASONE PROPIONATE 50MCG/SPRAY BOTTLE BOTHNSTRLS SCH (08:28)
[2021-07-06] MEDS: PANTOPRAZOLE 40MG DR TABLET PO SCH (08:28)
[2021-07-06] MEDS: ASPIRIN 81MG TABLET PO SCH (08:28)
[2021-07-06] MEDS: DOCUSATE SODIUM SUGAR FREE 100MG/10ML UDC NG SCH (08:36)
[2021-07-06 08:55] LABS: BG BASE EXCESS 5.9 mmol/L (-2.0-2.0); BG CARBOXYHEMOGLOBIN 1.2 % (0.5-1.5); BG DEOXYHEMOGLOBIN 5.2 % (0.0-5.0); BG FRACTION INSPIRED OXYGEN 30; BG HCO3 ACT 29.8 mmol/L (22.0-26.0); BG METHEMOGLOBIN 0.3 % (0.0-1.5); BG OXYGEN SATURATION 94.7 % (92.0-98.5); BG OXYHEMOGLOBIN 93.3 % (94.0-97.0); BG PCO2 40.9 mmHg (35.0-45.0); BG PH 7.481 (7.350-7.450); BG PO2 69.1 mmHg (75.0-100.0); BG SAMPLE SITE LEFT RADIAL; BG TOTAL HEMOGLOBIN 8.2 g/dL (12.0-18.0); BG TOTAL RESPIRATORY RATE 24 b/min; BG VENT MODE MASK - BIPAP
[2021-07-06 10:48] LABS: PLATELET ESTIMATE NORMAL
[2021-07-06] MEDS: SENNOSIDES/DOCUSATE SOD 8.6/50MG TABLET PO SCH (22:19)
[2021-07-06] MEDS: CEFEPIME 1,000 MG in DEXTROSE 5% WATER 50 ML IV SCH (22:20)
[2021-07-07] VITALS (7 sets, daily range): BP systolic 93–135; BP diastolic 49–81
[2021-07-07] MEDS: IPRATROPIUM/ALBUTEROL 0.5-3(2.5)MG/3ML NEB HHN SCH ×4 (01:30→20:56)
[2021-07-07] MEDS: DILTIAZEM HCL 60MG TABLET PO SCH ×3 (05:46→21:13)
[2021-07-07 06:17] LABS: HEMATOCRIT. 25.2 % (42.0-52.0); HEMOGLOBIN. 8.2 g/dL (14.0-18.0); MEAN CORPUSCULAR HEMOGLOBIN 29.4 pg (28.0-32.0); MEAN CORPUSCULAR VOLUME 90.5 fL (80.0-94.0); MEAN PLATELET VOLUME 7.4 fl (7.4-10.4); PLATELET 264 x1000/uL (130-400); RED BLOOD CELL COUNT 2.79 mill/uL (4.7-6.1); RED CELL DISTRIBUTION WIDTH 15.6 % (11.6-14.6)
[2021-07-07] MEDS: PANTOPRAZOLE 40MG DR TABLET PO SCH (06:20)
[2021-07-07] MEDS: MIDODRINE HCL 5MG TABLET PO SCH ×3 (06:20→21:13)
[2021-07-07 06:35] LABS: CHLORIDE 106 mEq/L (98-107)
[2021-07-07 06:55] LABS: TOTAL IRON BINDING CAPACITY 222 ug/dL (250-450)
[2021-07-07] MEDS: ASPIRIN 81MG TABLET PO SCH (09:17)
[2021-07-07] MEDS: DOCUSATE SODIUM SUGAR FREE 100MG/10ML UDC NG SCH (09:18)
[2021-07-07] MEDS: POLYETHYLENE GLYCOL 3350 (17GM) 1 DOSE PACK PO SCH (09:18)
[2021-07-07] MEDS ORDERED: PANT40TA51 PO (11:03)
[2021-07-07] MEDS ORDERED: MIDO5TAB4 PO (11:03)
[2021-07-07] MEDS ORDERED: LOV40 SUBCUT (11:03)
[2021-07-07 13:07] LABS: PLATELET ESTIMATE NORMAL
[2021-07-07] MEDS ORDERED: LACTULOSE 20G/30ML UDC PO NR (13:45)
[2021-07-07] MEDS: ENOXAPARIN 40MG/0.4ML SYR SUBCUT SCH (18:15)
[2021-07-07] MEDS: SENNOSIDES/DOCUSATE SOD 8.6/50MG TABLET PO SCH (21:13)
[2021-07-08] VITALS (7 sets, daily range): BP systolic 126–144; BP diastolic 71–78
[2021-07-08] MEDS: IPRATROPIUM/ALBUTEROL 0.5-3(2.5)MG/3ML NEB HHN SCH ×6 (00:27→20:13)
[2021-07-08] MEDS: DILTIAZEM HCL 60MG TABLET PO SCH ×3 (06:03→21:03)
[2021-07-08] MEDS: MIDODRINE HCL 5MG TABLET PO SCH ×3 (06:03→21:04)
[2021-07-08] MEDS: PANTOPRAZOLE 40MG DR TABLET PO SCH (06:21)
[2021-07-08 06:50] LABS: HEMATOCRIT. 27.5 % (42.0-52.0); HEMOGLOBIN. 8.9 g/dL (14.0-18.0); MEAN CORPUSCULAR HEMOGLOBIN 29.4 pg (28.0-32.0); MEAN CORPUSCULAR VOLUME 90.8 fL (80.0-94.0); MEAN PLATELET VOLUME 7.8 fl (7.4-10.4); PLATELET 297 x1000/uL (130-400); RED BLOOD CELL COUNT 3.02 mill/uL (4.7-6.1); RED CELL DISTRIBUTION WIDTH 15.6 % (11.6-14.6)
[2021-07-08 08:27] LABS: CHLORIDE 105 mEq/L (98-107)
[2021-07-08] MEDS: POLYETHYLENE GLYCOL 3350 (17GM) 1 DOSE PACK PO SCH (09:00)
[2021-07-08] MEDS: ASPIRIN 81MG TABLET PO SCH (09:38)
[2021-07-08] MEDS: FERROUS SULFATE 300MG/5ML UDC PO SCH (09:38)
[2021-07-08] MEDS: DOCUSATE SODIUM SUGAR FREE 100MG/10ML UDC NG SCH (09:38)
[2021-07-08] MEDS: ENOXAPARIN 40MG/0.4ML SYR SUBCUT SCH (17:15)
[2021-07-08 17:58] LABS: PLATELET ESTIMATE NORMAL
[2021-07-08] MEDS: SENNOSIDES/DOCUSATE SOD 8.6/50MG TABLET PO SCH (21:04)
[2021-07-09] VITALS (10 sets, daily range): BP systolic 101–124; BP diastolic 46–79
[2021-07-09] MEDS: IPRATROPIUM/ALBUTEROL 0.5-3(2.5)MG/3ML NEB HHN SCH ×6 (00:32→20:18)
[2021-07-09] MEDS: MIDODRINE HCL 5MG TABLET PO SCH ×3 (06:07→21:44)
[2021-07-09] MEDS: DILTIAZEM HCL 60MG TABLET PO SCH ×3 (06:07→21:43)
[2021-07-09] MEDS: PANTOPRAZOLE 40MG DR TABLET PO SCH (06:08)
[2021-07-09 06:35] LABS: BG BASE EXCESS 6.5 mmol/L (-2.0-2.0); BG CARBOXYHEMOGLOBIN 0.8 % (0.5-1.5); BG DEOXYHEMOGLOBIN 36.7 % (0.0-5.0); BG FRACTION INSPIRED OXYGEN 21; BG HCO3 ACT 33.6 mmol/L (22.0-26.0); BG METHEMOGLOBIN 0.6 % (0.0-1.5); BG OXYGEN SATURATION 62.8 % (92.0-98.5); BG OXYHEMOGLOBIN 61.9 % (94.0-97.0); BG PCO2 62.9 mmHg (35.0-45.0); BG PH 7.345 (7.350-7.450); BG PO2 37.6 mmHg (75.0-100.0); BG SAMPLE SITE UAL; BG TOTAL HEMOGLOBIN 10.1 g/dL (12.0-18.0); BG VENT MODE ROOM AIR
[2021-07-09 06:52] LABS: HEMATOCRIT. 26.5 % (42.0-52.0); HEMOGLOBIN. 8.6 g/dL (14.0-18.0); MEAN CORPUSCULAR HEMOGLOBIN 29.4 pg (28.0-32.0); MEAN CORPUSCULAR VOLUME 90.8 fL (80.0-94.0); MEAN PLATELET VOLUME 7.5 fl (7.4-10.4); PLATELET 289 x1000/uL (130-400); RED BLOOD CELL COUNT 2.92 mill/uL (4.7-6.1); RED CELL DISTRIBUTION WIDTH 15.3 % (11.6-14.6)
[2021-07-09 07:10] LABS: CHLORIDE 106 mEq/L (98-107)
[2021-07-09] MEDS ORDERED: FUROSEMIDE 40MG/4ML VIAL IVP SCH (07:45)
[2021-07-09] MEDS: ASPIRIN 81MG TABLET PO SCH (08:49)
[2021-07-09] MEDS: POLYETHYLENE GLYCOL 3350 (17GM) 1 DOSE PACK PO SCH (08:49)
[2021-07-09] MEDS: FERROUS SULFATE 300MG/5ML UDC PO SCH (08:49)
[2021-07-09] MEDS: DOCUSATE SODIUM SUGAR FREE 100MG/10ML UDC NG SCH (08:51)
[2021-07-09 09:01] LABS: BG BASE EXCESS 11.2 mmol/L (-2.0-2.0); BG CARBOXYHEMOGLOBIN 0.9 % (0.5-1.5); BG DEOXYHEMOGLOBIN 1.3 % (0.0-5.0); BG FRACTION INSPIRED OXYGEN 30; BG HCO3 ACT 37.3 mmol/L (22.0-26.0); BG METHEMOGLOBIN 0.5 % (0.0-1.5); BG OXYGEN SATURATION 98.7 % (92.0-98.5); BG OXYHEMOGLOBIN 97.3 % (94.0-97.0); BG PCO2 58.5 mmHg (35.0-45.0); BG PH 7.422 (7.350-7.450); BG PO2 150.5 mmHg (75.0-100.0); BG SAMPLE SITE LEFT RADIAL; BG TOTAL HEMOGLOBIN 9.3 g/dL (12.0-18.0); BG VENT MODE MASK - BIPAP
[2021-07-09 13:30] LABS: BG BASE EXCESS 9.5 mmol/L (-2.0-2.0); BG CARBOXYHEMOGLOBIN 0.5 % (0.5-1.5); BG DEOXYHEMOGLOBIN 6.9 % (0.0-5.0); BG FRACTION INSPIRED OXYGEN 30; BG HCO3 ACT 34.2 mmol/L (22.0-26.0); BG METHEMOGLOBIN 0.2 % (0.0-1.5); BG OXYGEN SATURATION 93.1 % (92.0-98.5); BG OXYHEMOGLOBIN 92.4 % (94.0-97.0); BG PH 7.471 (7.350-7.450); BG PO2 65.9 mmHg (75.0-100.0); BG SAMPLE SITE LEFT RADIAL; BG TOTAL HEMOGLOBIN 9.1 g/dL (12.0-18.0); BG TOTAL RESPIRATORY RATE 24 b/min; BG VENT MODE MASK - BIPAP
[2021-07-09 18:00] LABS: PLATELET ESTIMATE NORMAL
[2021-07-09] MEDS: ENOXAPARIN 40MG/0.4ML SYR SUBCUT SCH (18:43)
[2021-07-09] MEDS: SENNOSIDES/DOCUSATE SOD 8.6/50MG TABLET PO SCH (21:43)
[2021-07-10] VITALS (11 sets, daily range): BP systolic 95–118; BP diastolic 44–75
[2021-07-10] MEDS: IPRATROPIUM/ALBUTEROL 0.5-3(2.5)MG/3ML NEB HHN SCH ×5 (04:16→21:51)
[2021-07-10] MEDS: DILTIAZEM HCL 60MG TABLET PO SCH ×3 (05:49→21:00)
[2021-07-10] MEDS: MIDODRINE HCL 5MG TABLET PO SCH ×3 (05:49→21:01)
[2021-07-10] MEDS: PANTOPRAZOLE 40MG DR TABLET PO SCH (05:50)
[2021-07-10 07:10] LABS: HEMATOCRIT. 25.8 % (42.0-52.0); HEMOGLOBIN. 8.3 g/dL (14.0-18.0); MEAN CORPUSCULAR VOLUME 90.4 fL (80.0-94.0); PLATELET 280 x1000/uL (130-400); RED BLOOD CELL COUNT 2.85 mill/uL (4.7-6.1); RED CELL DISTRIBUTION WIDTH 16.7 % (11.6-14.6)
[2021-07-10 07:17] LABS: CHLORIDE 103 mEq/L (98-107)
[2021-07-10 09:41] LABS: BG BASE EXCESS 10.1 mmol/L (-2.0-2.0); BG CARBOXYHEMOGLOBIN 0.5 % (0.5-1.5); BG DEOXYHEMOGLOBIN 4.8 % (0.0-5.0); BG FRACTION INSPIRED OXYGEN 30; BG HCO3 ACT 34.9 mmol/L (22.0-26.0); BG METHEMOGLOBIN 0.1 % (0.0-1.5); BG OXYGEN SATURATION 95.2 % (92.0-98.5); BG OXYHEMOGLOBIN 94.6 % (94.0-97.0); BG PCO2 48.9 mmHg (35.0-45.0); BG PH 7.471 (7.350-7.450); BG PO2 76.2 mmHg (75.0-100.0); BG SAMPLE SITE LEFT RADIAL; BG TOTAL HEMOGLOBIN 8.9 g/dL (12.0-18.0); BG TOTAL RESPIRATORY RATE 22 b/min; BG VENT MODE MASK - BIPAP
[2021-07-10] MEDS: POLYETHYLENE GLYCOL 3350 (17GM) 1 DOSE PACK PO SCH (10:05)
[2021-07-10] MEDS: DOCUSATE SODIUM SUGAR FREE 100MG/10ML UDC NG SCH (10:05)
[2021-07-10] MEDS: LACTULOSE 20G/30ML UDC PO PRN (10:06)
[2021-07-10] MEDS: FERROUS SULFATE 300MG/5ML UDC PO SCH (10:06)
[2021-07-10] MEDS: ASPIRIN 81MG TABLET PO SCH (10:09)
[2021-07-10] MEDS: PIPERACILLIN/TAZOBACTAM 3.375 G in DEXTROSE 5% WATER 50 ML IV SCH ×2 (14:32→20:58)
[2021-07-10 16:20] LABS: PLATELET ESTIMATE NORMAL
[2021-07-10] MEDS: ENOXAPARIN 40MG/0.4ML SYR SUBCUT SCH (17:23)
[2021-07-10] MEDS: SENNOSIDES/DOCUSATE SOD 8.6/50MG TABLET PO SCH (20:58)
[2021-07-11] VITALS (16 sets, daily range): BP systolic 90–127; BP diastolic 58–90
[2021-07-11] MEDS: IPRATROPIUM/ALBUTEROL 0.5-3(2.5)MG/3ML NEB HHN SCH ×5 (01:40→22:07)
[2021-07-11] MEDS: MIDODRINE HCL 5MG TABLET PO SCH ×3 (05:38→21:32)
[2021-07-11] MEDS: DILTIAZEM HCL 60MG TABLET PO SCH ×3 (05:38→21:31)
[2021-07-11] MEDS: PANTOPRAZOLE 40MG DR TABLET PO SCH (07:18)
[2021-07-11] MEDS: FERROUS SULFATE 300MG/5ML UDC PO SCH (08:29)
[2021-07-11] MEDS: POLYETHYLENE GLYCOL 3350 (17GM) 1 DOSE PACK PO SCH (08:29)
[2021-07-11] MEDS: DOCUSATE SODIUM SUGAR FREE 100MG/10ML UDC NG SCH (08:29)
[2021-07-11] MEDS: ASPIRIN 81MG TABLET PO SCH (08:29)
[2021-07-11] MEDS: PIPERACILLIN/TAZOBACTAM 3.375 G in DEXTROSE 5% WATER 50 ML IV SCH ×2 (08:30→20:25)
[2021-07-11 10:56] LABS: HEMATOCRIT. 27.4 % (42.0-52.0); HEMOGLOBIN. 8.8 g/dL (14.0-18.0); MEAN CORPUSCULAR VOLUME 90.1 fL (80.0-94.0); MEAN PLATELET VOLUME 7.4 fl (7.4-10.4); PLATELET 284 x1000/uL (130-400); RED BLOOD CELL COUNT 3.04 mill/uL (4.7-6.1); RED CELL DISTRIBUTION WIDTH 16.5 % (11.6-14.6)
[2021-07-11 12:01] LABS: CHLORIDE 102 mEq/L (98-107)
[2021-07-11] MEDS: ENOXAPARIN 40MG/0.4ML SYR SUBCUT SCH (17:38)
[2021-07-11] MEDS: SENNOSIDES/DOCUSATE SOD 8.6/50MG TABLET PO SCH (20:25)
[2021-07-11] MEDS ORDERED: LACTULOSE 20G/30ML UDC PO PRN (21:00)
[2021-07-12] VITALS (11 sets, daily range): BP systolic 113–136; BP diastolic 63–87
[2021-07-12] MEDS: IPRATROPIUM/ALBUTEROL 0.5-3(2.5)MG/3ML NEB HHN SCH ×5 (01:05→20:57)
[2021-07-12] MEDS: PANTOPRAZOLE 40MG DR TABLET PO SCH (05:57)
[2021-07-12] MEDS: DILTIAZEM HCL 60MG TABLET PO SCH ×2 (05:57→14:15)
[2021-07-12] MEDS: MIDODRINE HCL 5MG TABLET PO SCH ×2 (05:58→14:15)
[2021-07-12 08:30] LABS: HEMATOCRIT. 26.8 % (42.0-52.0); HEMOGLOBIN. 8.5 g/dL (14.0-18.0); MEAN CORPUSCULAR HEMOGLOBIN 28.3 pg (28.0-32.0); MEAN PLATELET VOLUME 7.6 fl (7.4-10.4); PLATELET 294 x1000/uL (130-400); RED BLOOD CELL COUNT 3.01 mill/uL (4.7-6.1); RED CELL DISTRIBUTION WIDTH 16.4 % (11.6-14.6)
[2021-07-12 08:42] LABS: CHLORIDE 102 mEq/L (98-107)
[2021-07-12] MEDS: ASPIRIN 81MG TABLET PO SCH (08:56)
[2021-07-12] MEDS: DOCUSATE SODIUM SUGAR FREE 100MG/10ML UDC NG SCH (08:57)
[2021-07-12] MEDS: FERROUS SULFATE 300MG/5ML UDC PO SCH (08:57)
[2021-07-12] MEDS: POLYETHYLENE GLYCOL 3350 (17GM) 1 DOSE PACK PO SCH (08:57)
[2021-07-12] MEDS: PIPERACILLIN/TAZOBACTAM 3.375 G in DEXTROSE 5% WATER 50 ML IV SCH (08:58)
[2021-07-12 14:06] LABS: PLATELET ESTIMATE NORMAL
[2021-07-12] MEDS: ENOXAPARIN 40MG/0.4ML SYR SUBCUT SCH (18:36)
[2021-07-12 22:09] LABS: PLATELET ESTIMATE NORMAL
[2021-07-29] MEDS ORDERED: ENOXAPARIN 30MG/0.3ML SYR SUBCUT SCH (21:00)
[2021-07-29] MEDS ORDERED: ATORVASTATIN CALCIUM 40MG TABLET PO SCH (21:00)
[2021-07-29] MEDS ORDERED: MIDODRINE HCL 5MG TABLET PO SCH (22:00)
[2021-07-30] MEDS ORDERED: PANTOPRAZOLE 40MG DR TABLET PO SCH (06:50)
[2021-07-30] MEDS ORDERED: ASPIRIN 81MG EC TABLET PO SCH (09:00)
== END 2021-07-12 22:09 | DRG 480 ==
LOC: ER 15:00 → 6EST 20:08 → EDBEDREQTM 20:13 → EDBEDREQ 20:13 → ENRESERV 20:22 → MICUSO 06-25 21:56 → 3WST 07-01 18:50 → 6EST 07-03 22:30 → 6WST 07-04 20:55 → CVICU 07-05 08:41 → 6WST 07-06 20:42 → UNDODISIN 07-09 16:00 → 3WST 07-09 16:25
PROVIDERS: ADMIT Family Medicine Adult Medicine; ATTEND Family Medicine Adult Medicine
PROC: 2W3LX1Z Immobilization of Right Lower Extremity using Splint (ICD-10-PCS; 2021-06-24)
PROC: 0QSB04Z Reposition Right Lower Femur with Internal Fixation Device, Open Approach (ICD-10-PCS; principal; 2021-06-25)
PROC: 30233N1 Transfusion of Nonautologous Red Blood Cells into Peripheral Vein, Percutaneous Approach (ICD-10-PCS; 2021-06-25)
PROC: 05HY33Z Insertion of Infusion Device into Upper Vein, Percutaneous Approach (ICD-10-PCS; 2021-06-30)
PROC: B54MZZA Ultrasonography of Right Upper Extremity Veins, Guidance (ICD-10-PCS; 2021-06-30)
PROC: 5A09357 Assistance with Respiratory Ventilation, Less than 24 Consecutive Hours, Continuous Positive Airway Pressure (ICD-10-PCS; 2021-06-30)
PROC: 5A09357 Assistance with Respiratory Ventilation, Less than 24 Consecutive Hours, Continuous Positive Airway Pressure (ICD-10-PCS; 2021-07-01)
PROC: 5A09357 Assistance with Respiratory Ventilation, Less than 24 Consecutive Hours, Continuous Positive Airway Pressure (ICD-10-PCS; 2021-07-02)
PROC: 5A09357 Assistance with Respiratory Ventilation, Less than 24 Consecutive Hours, Continuous Positive Airway Pressure (ICD-10-PCS; 2021-07-05)
PROC: 5A09357 Assistance with Respiratory Ventilation, Less than 24 Consecutive Hours, Continuous Positive Airway Pressure (ICD-10-PCS; 2021-07-09)
DX: S72.401A Unspecified fracture of lower end of right femur, initial encounter for closed fracture (principal); A41.9 Sepsis, unspecified organism; I21.4 Non-ST elevation (NSTEMI) myocardial infarction; R65.21 Severe sepsis with septic shock; G93.41 Metabolic encephalopathy; J96.22 Acute and chronic respiratory failure with hypercapnia; J96.21 Acute and chronic respiratory failure with hypoxia; J18.9 Pneumonia, unspecified organism; D62 Acute posthemorrhagic anemia; E44.0 Moderate protein-calorie malnutrition; N17.9 Acute kidney failure, unspecified; M97.01XA Periprosthetic fracture around internal prosthetic right hip joint, initial encounter; E87.4 Mixed disorder of acid-base balance; I97.191 Other postprocedural cardiac functional disturbances following other surgery; N18.9 Chronic kidney disease, unspecified; I35.0 Nonrheumatic aortic (valve) stenosis; E86.0 Dehydration; I44.0 Atrioventricular block, first degree; I12.9 Hypertensive chronic kidney disease with stage 1 through stage 4 chronic kidney disease, or unspecified chronic kidney disease; D50.9 Iron deficiency anemia, unspecified; E78.5 Hyperlipidemia, unspecified; E87.5 Hyperkalemia; I25.10 Atherosclerotic heart disease of native coronary artery without angina pectoris; D63.8 Anemia in other chronic diseases classified elsewhere; E78.00 Pure hypercholesterolemia, unspecified; K59.09 Other constipation; M19.90 Unspecified osteoarthritis, unspecified site; Z96.651 Presence of right artificial knee joint; Z96.643 Presence of artificial hip joint, bilateral; I73.9 Peripheral vascular disease, unspecified; R73.9 Hyperglycemia, unspecified; K57.90 Diverticulosis of intestine, part unspecified, without perforation or abscess without bleeding; K76.0 Fatty (change of) liver, not elsewhere classified; R00.1 Bradycardia, unspecified; M48.02 Spinal stenosis, cervical region; L89.326 Pressure-induced deep tissue damage of left buttock; L89.316 Pressure-induced deep tissue damage of right buttock; W01.0XXA Fall on same level from slipping, tripping and stumbling without subsequent striking against object, initial encounter; S90.821A Blister (nonthermal), right foot, initial encounter; X58.XXXA Exposure to other specified factors, initial encounter; Z20.822 Contact with and (suspected) exposure to COVID-19; Y92.238 Other place in hospital as the place of occurrence of the external cause; Y93.89 Activity, other specified; Y92.89 Other specified places as the place of occurrence of the external cause; Y99.8 Other external cause status; Z99.3 Dependence on wheelchair; Z86.73 Personal history of transient ischemic attack (TIA), and cerebral infarction without residual deficits; Z95.5 Presence of coronary angioplasty implant and graft; Z82.49 Family history of ischemic heart disease and other diseases of the circulatory system; I25.2 Old myocardial infarction; Z68.29 Body mass index [BMI] 29.0-29.9, adult; Z91.013 Allergy to seafood; Z79.82 Long term (current) use of aspirin; Z79.899 Other long term (current) drug therapy
CPT/HCPCS: 31500; 36415; 36600; 71045; 73502; 73552; 73560; 73590; 73610; 73630; 74018; 76000; 76700; 76770; 76937; 78580; 80048; 80053; 80076; 81003; 82140; 82150; 82248; 82270; 82375; 82550; 82553; 82570; 82607; 82728; 82746; 82805; 82962; 83540; 83550; 83605; 83735; 83935; 84134; 84145; 84300; 84484; 85014; 85018; 85025; 85044; 85379; 86705; 86709; 86803; 86850; 86870; 86900; 86920; 87070; 87075; 87340; 87426; 90732; 92523; 92610; 93005; 93306; 93923; 93970; 93971; 94002; 94003; 94640; 94660; 97110; 97162; 97164; 97166; 97168; 97530; 99285; A6261; C1713; C1725; C9113; J0330; J0690; J0692; J1650; J1815; J1940; J2020; J2250; J2270; J2370; J2405; J2543; J2704; J2710; J2765; J3010; J3370; J3490; J7030; J7040; J7042; J7060; J7626; L1830; P9016; P9041; P9047

== ENCOUNTER 2021-09-01 15:25 | Inpatient (IN) | payer MEDICARE, OTHER ==
[~2021-09-01] VITALS: Ht 188 cm; Wt 94.8 kg
[~2021-09-01 15:25] MED LIST changes: -LOSA50TA41 PO; +LOV40 SUBCUT; +MIDO5TAB4 PO; +PANT40TA51 PO
[2021-09-01 18:58] LABS: HEMOGLOBIN. 11.9 g/dL (14.0-18.0); MEAN CORPUSCULAR VOLUME 84.3 fL (80.0-94.0); MEAN PLATELET VOLUME 7.6 fl (7.4-10.4); PLATELET 324 x1000/uL (130-400); RED BLOOD CELL COUNT 4.27 mill/uL (4.7-6.1); RED CELL DISTRIBUTION WIDTH 16.6 % (11.6-14.6)
[2021-09-01 19:00] LABS: CHLORIDE 104 mEq/L (98-107)
[2021-09-01 19:34] LABS: PLATELET ESTIMATE NORMAL
[2021-09-02 01:25] LABS: CLARITY URINE CLEAR (CLEAR); COLOR URINE YELLOW (YELLOW); KETONES URINE TRACE (NEGATIVE); LEUKOCYTE ESTERASE URINE NEGATIVE (NEGATIVE); NITRITE URINE NEGATIVE (NEGATIVE); OCCULT BLOOD URINE NEGATIVE (NEGATIVE); PH URINE 5.5 (4.5-8.0); PROTEIN URINE 2+ (NEGATIVE); SPECIFIC GRAVITY URINE 1.028 (1.005-1.030)
[2021-09-02] MEDS: ACETAMINOPHEN 325MG TABLET PO PRN ×2 (05:25→11:38)
[2021-09-02 09:20] VITALS: BP 156/94
[2021-09-02 10:30] VITALS: BP 156/94
[2021-09-02] MEDS: ASPIRIN 81MG TABLET PO SCH (11:28)
[2021-09-02] MEDS: ENOXAPARIN 30MG/0.3ML SYR SUBCUT SCH ×2 (11:28→20:29)
[2021-09-02] MEDS: PANTOPRAZOLE 40MG DR TABLET PO SCH (11:28)
[2021-09-02 12:00] VITALS: BP 135/77
[2021-09-02 16:00] VITALS: BP 156/75
[2021-09-02] MEDS ORDERED: MAGNESIUM CITRATE 300ML SOLUTION PO NR (20:00)
[2021-09-02 20:06] VITALS: BP 128/84
[2021-09-02] MEDS: ATORVASTATIN CALCIUM 40MG TABLET PO SCH (20:28)
[2021-09-02] MEDS: AMLODIPINE 2.5MG TABLET PO SCH (20:28)
[2021-09-03] VITALS: BP 147/79
[2021-09-03] MEDS: ACETAMINOPHEN 325MG TABLET PO PRN ×3 (04:30→20:39)
[2021-09-03] MEDS: PANTOPRAZOLE 40MG DR TABLET PO SCH (06:20)
[2021-09-03 06:47] LABS: BASOPHILS % 0.5 % (0.0-2.0); EOSINOPHILS % 6.4 % (0.0-5.0); HEMATOCRIT. 33.1 % (42.0-52.0); HEMOGLOBIN. 10.8 g/dL (14.0-18.0); LYMPHOCYTES % 13.2 % (20.0-50.0); MEAN CORPUSCULAR HEMOGLOBIN 27.8 pg (28.0-32.0); MEAN CORPUSCULAR VOLUME 85.2 fL (80.0-94.0); MEAN PLATELET VOLUME 7.9 fl (7.4-10.4); MONOCYTES % 8.9 % (2.0-8.0); PLATELET 278 x1000/uL (130-400); RED BLOOD CELL COUNT 3.89 mill/uL (4.7-6.1); RED CELL DISTRIBUTION WIDTH 16.5 % (11.6-14.6)
[2021-09-03 07:39] LABS: CHLORIDE 102 mEq/L (98-107)
[2021-09-03 08:00] VITALS: BP 128/82
[2021-09-03] MEDS: ASPIRIN 81MG TABLET PO SCH (08:35)
[2021-09-03] MEDS: AMLODIPINE 2.5MG TABLET PO SCH ×2 (08:35→20:39)
[2021-09-03] MEDS: ENOXAPARIN 30MG/0.3ML SYR SUBCUT SCH (08:36)
[2021-09-03 11:54] VITALS: BP 130/80
[2021-09-03 20:00] VITALS: BP 139/55
[2021-09-03] MEDS: ENOXAPARIN 40MG/0.4ML SYR SUBCUT SCH (20:39)
[2021-09-03] MEDS: ATORVASTATIN CALCIUM 40MG TABLET PO SCH (20:39)
[2021-09-03 23:45] VITALS: BP 116/72
[2021-09-04] MEDS: PANTOPRAZOLE 40MG DR TABLET PO SCH (06:22)
[2021-09-04 07:49] LABS: CHLORIDE 105 mEq/L (98-107)
[2021-09-04 08:00] VITALS: BP 136/85
[2021-09-04] MEDS: ASPIRIN 81MG TABLET PO SCH (09:14)
[2021-09-04] MEDS: AMLODIPINE 2.5MG TABLET PO SCH ×2 (09:15→21:25)
[2021-09-04] MEDS ORDERED: NALOXONE HCL 0.4MG/ML VIAL IV PRN (09:45)
[2021-09-04 12:00] VITALS: BP 144/80
[2021-09-04] MEDS: HYDROCODONE/ACETAMINOPHEN 5/325MG TABLET PO PRN (13:09)
[2021-09-04 20:00] VITALS: BP 150/84
[2021-09-04] MEDS: ENOXAPARIN 40MG/0.4ML SYR SUBCUT SCH (21:24)
[2021-09-04] MEDS: ATORVASTATIN CALCIUM 40MG TABLET PO SCH (21:25)
[2021-09-05] VITALS: BP 128/78
[2021-09-05] MEDS: PANTOPRAZOLE 40MG DR TABLET PO SCH (06:23)
[2021-09-05 08:00] VITALS: BP 119/83
[2021-09-05 08:59] LABS: BASOPHILS % 0.6 % (0.0-2.0); EOSINOPHILS % 5.8 % (0.0-5.0); HEMATOCRIT. 35.9 % (42.0-52.0); HEMOGLOBIN. 11.7 g/dL (14.0-18.0); LYMPHOCYTES % 14.9 % (20.0-50.0); MEAN CORPUSCULAR HEMOGLOBIN 27.5 pg (28.0-32.0); MEAN CORPUSCULAR VOLUME 84.1 fL (80.0-94.0); MEAN PLATELET VOLUME 7.7 fl (7.4-10.4); MONOCYTES % 7.3 % (2.0-8.0); NEUTROPHILS % 71.4 % (40.0-76.0); PLATELET 324 x1000/uL (130-400); RED BLOOD CELL COUNT 4.27 mill/uL (4.7-6.1); RED CELL DISTRIBUTION WIDTH 16.1 % (11.6-14.6)
[2021-09-05] MEDS: AMLODIPINE 2.5MG TABLET PO SCH ×2 (09:05→20:41)
[2021-09-05] MEDS: ASPIRIN 81MG TABLET PO SCH (09:05)
[2021-09-05] MEDS: HYDROCODONE/ACETAMINOPHEN 5/325MG TABLET PO PRN (09:13)
[2021-09-05 09:18] LABS: CHLORIDE 104 mEq/L (98-107)
[2021-09-05 12:00] VITALS: BP 98/57
[2021-09-05 20:00] VITALS: BP 123/78
[2021-09-05] MEDS: ATORVASTATIN CALCIUM 40MG TABLET PO SCH (20:41)
[2021-09-05] MEDS: ENOXAPARIN 40MG/0.4ML SYR SUBCUT SCH (20:41)
[2021-09-06] VITALS: BP 116/77
[2021-09-06 04:23] VITALS: BP 133/81
[2021-09-06] MEDS: PANTOPRAZOLE 40MG DR TABLET PO SCH (06:19)
[2021-09-06 08:00] VITALS: BP 132/69
[2021-09-06] MEDS: ASPIRIN 81MG TABLET PO SCH (09:13)
[2021-09-06] MEDS: AMLODIPINE 2.5MG TABLET PO SCH ×2 (09:16→20:28)
[2021-09-06 19:41] VITALS: BP 116/72
[2021-09-06] MEDS: ATORVASTATIN CALCIUM 40MG TABLET PO SCH (20:28)
[2021-09-06] MEDS: ENOXAPARIN 40MG/0.4ML SYR SUBCUT SCH (20:29)
[2021-09-07] VITALS: BP 111/62
[2021-09-07 04:39] VITALS: BP 113/54
[2021-09-07] MEDS: PANTOPRAZOLE 40MG DR TABLET PO SCH (06:22)
[2021-09-07 08:00] VITALS: BP 126/77
[2021-09-07] MEDS: AMLODIPINE 2.5MG TABLET PO SCH ×2 (08:46→21:44)
[2021-09-07] MEDS: ASPIRIN 81MG TABLET PO SCH (08:46)
[2021-09-07 11:35] VITALS: BP 116/70
[2021-09-07 15:31] VITALS: BP 116/72
[2021-09-07 20:00] VITALS: BP 120/69
[2021-09-07] MEDS: ENOXAPARIN 40MG/0.4ML SYR SUBCUT SCH (21:44)
[2021-09-07] MEDS: ATORVASTATIN CALCIUM 40MG TABLET PO SCH (21:44)
[2021-09-08] VITALS: BP 109/72
[2021-09-08] MEDS: ACETAMINOPHEN 325MG TABLET PO PRN (01:05)
[2021-09-08 04:00] VITALS: BP 92/63
[2021-09-08] MEDS: PANTOPRAZOLE 40MG DR TABLET PO SCH (07:10)
[2021-09-08 08:00] VITALS: BP 91/56
[2021-09-08] MEDS: AMLODIPINE 2.5MG TABLET PO SCH ×2 (09:07→21:00)
[2021-09-08] MEDS: ASPIRIN 81MG TABLET PO SCH (09:07)
[2021-09-08 09:23] LABS: BASOPHILS % 0.7 % (0.0-2.0); EOSINOPHILS % 5.3 % (0.0-5.0); HEMATOCRIT. 35.7 % (42.0-52.0); HEMOGLOBIN. 11.8 g/dL (14.0-18.0); LYMPHOCYTES % 15.5 % (20.0-50.0); MEAN CORPUSCULAR HEMOGLOBIN 27.9 pg (28.0-32.0); MEAN CORPUSCULAR VOLUME 84.8 fL (80.0-94.0); MONOCYTES % 7.5 % (2.0-8.0); PLATELET 322 x1000/uL (130-400); RED BLOOD CELL COUNT 4.21 mill/uL (4.7-6.1)
[2021-09-08 12:00] VITALS: BP 106/63
[2021-09-08 16:00] VITALS: BP 112/64
[2021-09-08 20:00] VITALS: BP 99/61
[2021-09-08] MEDS: ATORVASTATIN CALCIUM 40MG TABLET PO SCH (22:07)
[2021-09-08] MEDS: ENOXAPARIN 40MG/0.4ML SYR SUBCUT SCH (22:07)
[2021-09-09 00:22] VITALS: BP 95/61
[2021-09-09 04:00] VITALS: BP 103/65
[2021-09-09] MEDS: PANTOPRAZOLE 40MG DR TABLET PO SCH (06:36)
[2021-09-09] MEDS: AMLODIPINE 2.5MG TABLET PO SCH (09:00)
[2021-09-09 09:36] VITALS: BP 91/59
[2021-09-09] MEDS: ASPIRIN 81MG TABLET PO SCH (09:39)
[2021-09-09] MEDS: ACETAMINOPHEN 325MG TABLET PO PRN (11:24)
[2021-09-09 11:44] VITALS: BP 116/62
[2021-09-09] MEDS ORDERED: DOCUSATE SODIUM 250MG CAPSULE PO PRN (12:00)
[2021-09-09 15:45] VITALS: BP 112/69
[2021-09-09 20:00] VITALS: BP 100/59
[2021-09-09] MEDS: ENOXAPARIN 40MG/0.4ML SYR SUBCUT SCH (21:15)
[2021-09-09] MEDS: ATORVASTATIN CALCIUM 40MG TABLET PO SCH (21:15)
[2021-09-09] MEDS: LACTULOSE 20G/30ML UDC PO PRN (21:23)
[2021-09-10 00:31] VITALS: BP 111/55
[2021-09-10] MEDS: PANTOPRAZOLE 40MG DR TABLET PO SCH (07:01)
[2021-09-10 08:28] VITALS: BP 137/77
[2021-09-10] MEDS: ASPIRIN 81MG TABLET PO SCH (08:30)
[2021-09-10] MEDS: AMLODIPINE 2.5MG TABLET PO SCH (08:31)
[2021-09-10 12:25] VITALS: BP 149/80
[2021-09-10 16:36] VITALS: BP 96/70
[2021-09-10] MEDS: ATORVASTATIN CALCIUM 40MG TABLET PO SCH (21:40)
[2021-09-10] MEDS: ENOXAPARIN 40MG/0.4ML SYR SUBCUT SCH (21:41)
[2021-09-10 23:01] VITALS: BP 111/66
[2021-09-11 04:00] VITALS: BP 128/66
[2021-09-11 06:06] LABS: BASOPHILS % 0.5 % (0.0-2.0); EOSINOPHILS % 4.6 % (0.0-5.0); HEMATOCRIT. 36.9 % (42.0-52.0); LYMPHOCYTES % 15.3 % (20.0-50.0); MEAN CORPUSCULAR HEMOGLOBIN 27.6 pg (28.0-32.0); MONOCYTES % 8.5 % (2.0-8.0); NEUTROPHILS % 71.1 % (40.0-76.0); PLATELET 307 x1000/uL (130-400); RED BLOOD CELL COUNT 4.34 mill/uL (4.7-6.1); RED CELL DISTRIBUTION WIDTH 16.6 % (11.6-14.6)
[2021-09-11 06:39] LABS: CHLORIDE 104 mEq/L (98-107)
[2021-09-11 08:00] VITALS: BP 96/61
[2021-09-11] MEDS: AMLODIPINE 2.5MG TABLET PO SCH (09:00)
[2021-09-11] MEDS: PANTOPRAZOLE 40MG DR TABLET PO SCH (09:04)
[2021-09-11] MEDS: ASPIRIN 81MG TABLET PO SCH (09:04)
[2021-09-11 12:00] VITALS: BP 117/74
[2021-09-11 16:00] VITALS: BP 116/71
[2021-09-11 20:00] VITALS: BP 134/68
[2021-09-11] MEDS: LACTULOSE 20G/30ML UDC PO PRN (21:56)
[2021-09-11] MEDS: ATORVASTATIN CALCIUM 40MG TABLET PO SCH (21:56)
[2021-09-11] MEDS: ENOXAPARIN 40MG/0.4ML SYR SUBCUT SCH (21:56)
[2021-09-12] VITALS: BP 122/84
[2021-09-12 04:00] VITALS: BP 114/75
[2021-09-12] MEDS: PANTOPRAZOLE 40MG DR TABLET PO SCH (06:39)
[2021-09-12 08:00] VITALS: BP 127/83
[2021-09-12] MEDS: AMLODIPINE 2.5MG TABLET PO SCH (08:59)
[2021-09-12] MEDS: ASPIRIN 81MG TABLET PO SCH (08:59)
[2021-09-12 12:00] VITALS: BP 113/71
[2021-09-12 16:00] VITALS: BP 121/82
[2021-09-12] MEDS ORDERED: MAGNESIUM CITRATE 300ML SOLUTION PO PRN (16:30)
[2021-09-12 20:00] VITALS: BP 119/67
[2021-09-12] MEDS: ATORVASTATIN CALCIUM 40MG TABLET PO SCH (20:28)
[2021-09-12] MEDS: ENOXAPARIN 40MG/0.4ML SYR SUBCUT SCH (20:29)
[2021-09-13] VITALS: BP 122/65
[2021-09-13 00:36] VITALS: BP 130/79
[2021-09-13 04:00] VITALS: BP 125/70
[2021-09-13] MEDS ORDERED: AMLO2.5T2 PO (06:19)
[2021-09-13] MEDS: PANTOPRAZOLE 40MG DR TABLET PO SCH (06:29)
== END 2021-09-13 08:25 | DRG 391 ==
LOC: ER 15:25 → MICUSO 09-02 02:35 → EDBEDREQTM 09-02 02:38 → EDBEDREQ 09-02 02:38 → 6WST 09-02 09:49 → 6EST 09-11 11:06
PROVIDERS: ADMIT Family Medicine Adult Medicine; ATTEND Family Medicine Adult Medicine
DX: K57.92 Diverticulitis of intestine, part unspecified, without perforation or abscess without bleeding (principal); G93.41 Metabolic encephalopathy; E43 Unspecified severe protein-calorie malnutrition; N17.9 Acute kidney failure, unspecified; R53.81 Other malaise; I11.0 Hypertensive heart disease with heart failure; I50.9 Heart failure, unspecified; I25.10 Atherosclerotic heart disease of native coronary artery without angina pectoris; E78.5 Hyperlipidemia, unspecified; R26.9 Unspecified abnormalities of gait and mobility; M48.02 Spinal stenosis, cervical region; I49.1 Atrial premature depolarization; D64.9 Anemia, unspecified; E78.00 Pure hypercholesterolemia, unspecified; M19.90 Unspecified osteoarthritis, unspecified site; N28.9 Disorder of kidney and ureter, unspecified; I73.9 Peripheral vascular disease, unspecified; I44.0 Atrioventricular block, first degree; K76.0 Fatty (change of) liver, not elsewhere classified; R73.9 Hyperglycemia, unspecified; Z20.822 Contact with and (suspected) exposure to COVID-19; Z96.643 Presence of artificial hip joint, bilateral; M85.80 Other specified disorders of bone density and structure, unspecified site; I35.0 Nonrheumatic aortic (valve) stenosis; I25.2 Old myocardial infarction; Z86.73 Personal history of transient ischemic attack (TIA), and cerebral infarction without residual deficits; Z95.5 Presence of coronary angioplasty implant and graft; Z91.013 Allergy to seafood; Z79.82 Long term (current) use of aspirin; Z79.1 Long term (current) use of non-steroidal anti-inflammatories (NSAID); Z79.899 Other long term (current) drug therapy; Z82.49 Family history of ischemic heart disease and other diseases of the circulatory system; Z87.01 Personal history of pneumonia (recurrent)
CPT/HCPCS: 36415; 71045; 73552; 80048; 80053; 81003; 83880; 84145; 84484; 85025; 87426; 93005; 93306; 93970; 97110; 97116; 97162; 97166; 97530; 97535; 99285; J1650